=== PATIENT | female | born 1955 | race Caucasian/White ===

== ENCOUNTER 2019-09-22 15:39 | Inpatient (IN) | payer MEDICARE ==
[~2019-09-22 15:39] MED LIST: Heparin 1,000 UNITS/ML VIAL ONE
[2019-09-22] MEDS ORDERED: Acetaminophen 325 MG TAB PO PRN (18:02)
[2019-09-22] MEDS ORDERED: Senokot S 8.6-50 MG TAB PO PRN (18:02)
[2019-09-22] MEDS ORDERED: Dextrose 50% Abboject 50 ML SYRINGE SLOW IVP PRN (19:17)
[2019-09-22] MEDS ORDERED: Dextrose 5% in Water 1,000 ML IV PRN (19:17)
[2019-09-22] MEDS ORDERED: HumaLOG 300 UNITS/3 ML VIAL SC PRN (19:17)
[2019-09-22] MEDS: Gabapentin 300 MG CAP PO SCH (19:53)
[2019-09-22] MEDS ORDERED: Cefepime 2 GM in Sodium Chloride 0.9% 100 ML IVPB SCH (21:00)
[2019-09-22] MEDS: MEROPENEM 1 GM/50 ML 1 GM in Premix Bag 1 BAG IVPB SCH (21:24)
[2019-09-22 21:59] VITALS: BMI 35.7
--- NOTE | 2019-09-23 02:18 | HP ---
CHIEF COMPLAINT: Left foot pain. HISTORY OF PRESENT ILLNESS: The patient is a 64-year-old female with a known history of diabetes who comes into the hospital with complaints of left foot pain x2 days. The patient states that about 2 years ago she had an injury to her left foot, and since then, she had an ulcer about a year ago which was treated without any antibiotics. The patient stated that on Monday she noticed some swelling of the left plantar aspect of her foot. The patient stated that she did go to a local ER for having symptoms of generalized weakness, nausea, vomiting and a fever. At this time, she did not think it was her left foot that could be causing her symptoms. She was told by the ER personnel that she probably had a virus and to continue to monitor. The patient states that she started feeling more weak and started having more pain to her left foot, so she came into the hospital for further evaluation. PAST MEDICAL HISTORY: She has a history of diabetes type 2. She has a history of hypothyroidism and hypertension. SURGICAL HISTORY: She has had a cholecystectomy. She has had tonsillectomy. She has had a tubal ligation. SOCIAL HISTORY: She denies any alcohol use, drug use or smoking history. She is a full code. Lives with her family. REVIEW OF SYSTEMS: All negative except for the ones mentioned above in the HPI. PHYSICAL EXAMINATION: VITAL SIGNS: Temperature of 99.6, 95% on room air, 182/89, 103 and respirations of 20. GENERAL: She is awake, alert and oriented x3. Does not appear in distress. CV: S1, S2 present. No murmurs, rubs or gallops. LUNGS: Clear to auscultation. No rhonchi or wheezes noted. ABDOMEN: Soft and nontender. Bowel sounds are present x2. EXTREMITIES: Pedal pulses are present x2. Her left foot has a significant deformity, appears to be Charcot like. She does have significant erythema and swelling of plantar aspect of her foot. I do see a small injury, however, it looks that it has been healed over. She does have some callus also that is noted to the plantar aspect of her foot. Pedal pulses are present to bilateral lower extremities. NEUROVASCULAR: No focal deficits noted. SKIN: No cuts, lesions or bruises noted. LYMPH NODES: Left inguinal lymph node was palpable. ALLERGIES: SHE IS ALLERGIC TO PENICILLIN, SHE STATES THAT IT IS SINCE SHE WAS A CHILD. MEDICATIONS: She is on: 1. Levothyroxine 125 mcg daily. 2. Lisinopril 20 mg daily. 3. Glipizide 5 mg daily. 4. Gabapentin 600 mg twice a day. 5. Metformin 500 mg twice a day. FAMILY HISTORY: No history of heart disease or stroke. LABORATORY RESULTS: WBC of 12.7, hemoglobin of 11.8, hematocrit of 36.7, platelets of 232, neutrophils are 10.9. Her CK is 126. BMP; sodium of 135, potassium of 3.5, chloride of 96, BUN of 13, creatinine of 1.34. Her bilirubin total is 0.5, glucose of 164. Her AST and ALT are normal. Troponin was normal. BNP was 44. Lactic acid was 1.1. Urine did not show any acute abnormalities. CRP was 16.67. She did have the left foot x-ray which indicated cellulitis, bone destruction, dislocation, subluxation, and cloudy amorphous soft tissue calcification throughout the metatarsal joint. This is suspicious of septic arthritis and osteomyelitis of the midfoot and Charcot neuropathic joint. ASSESSMENT AND PLAN: The patient is a very pleasant 64-year-old female who presents to the hospital with complaints of left foot pain. 1. Left foot cellulitis, possibly osteomyelitis noted on the x-ray. We will get Orthopedics and also Infectious Disease. We will start her on broad-spectrum antibiotics with meropenem and vancomycin. We will keep her n.p.o. after midnight. May also consider getting an MRI. Await recommendations from ID and Orthopedics. 2. Diabetes. We will check her Accu-Cheks before meals and at bedtime. We will hold her metformin and glipizide for now and give her sliding scale, and if required, even subcu. 3. Hypothyroidism. We will continue her Synthroid. 4. Diabetic neuropathy. We will continue her Neurontin. 5. DVT prophylaxis. We will put the patient on subcu Lovenox. Job ID: [id number]
[2019-09-23 05:21] LABS: #Eosinphils 0.1 thou/uL (0.0-0.7); #Monocytes 0.6 thou/uL (0.11-0.59); #Neutrophils 6.3 thou/uL (1.40-6.50); %Basophils 0.4 % (0.0-1.0); %Eosinophils 1.8 % (0.0-10.0); %Monocytes 7.3 % (0.0-10.0); %Neutrophils 78.5 % (42.0-75.0); Hemoglobin 10.7 g/dL (12.0-16.0); Mean Corpuscular Hemoglobin 27.1 pg (27.0-31.0); Mean Corpuscular Volume 87.4 fL (78.0-98.0); Platelet Count 223 thou/uL (130-400); Red Blood Cell (RBC) Count 3.94 mill/uL (4.20-5.40)
[2019-09-23] MEDS: MEROPENEM 1 GM/50 ML 1 GM in Premix Bag 1 BAG IVPB SCH ×3 (05:32→16:38)
[2019-09-23 05:46] LABS: Anion Gap 14 mmol/L (10-20); BUN (Urea Nitrogen) 14 mg/dL (9.8-20.1); Calc. Creatinine Clearance 62 mL/min (70-130); Calcium 7.6 mg/dL (7.8-10.44); Carbon Dioxide 24 mmol/L (23-31); Chloride 103 mmol/L (98-107); Estimated GFR-MDRD 41; Glucose 122 mg/dL (80-115); Potassium 3.5 mmol/L (3.5-5.1); Sodium 137 mmol/L (136-145)
[2019-09-23] MEDS: Gabapentin 300 MG CAP PO SCH ×2 (08:48→22:22)
[2019-09-23] MEDS: Enoxaparin Sodium 40 MG/0.4 ML SYRINGE SC SCH (08:50)
[2019-09-23] MEDS ORDERED: Magnevist 469MG/ML 20 ML VIAL ONE (10:07)
[2019-09-23] MEDS ORDERED: traMADol HCl 50 MG TAB PO PRN (12:21)
[2019-09-23] MEDS ORDERED: Ibuprofen 600 MG TAB PO PRN (12:21)
--- NOTE | 2019-09-23 12:58 | CON ---
DATE OF CONSULTATION: HISTORY OF PRESENT ILLNESS: Erica Aiken is a 64-year-old female, who is from the [facility], but lives with family in [place]. She is a non-insulin dependent diabetic, morbidly obese, 35 BMI. She is admitted to the Hospitalist Service for chronic left foot problems. She has been treated by her local doctor and Podiatry and Wound Care in the [facility]. She presents on this occasion with a chronic left foot problem. She has a small opening probably less than 1 cm in the proximal plantar arch that when probed, the probe extends 5 cm distal foot with undermining. There is severe swelling in the soft tissues. There is swelling of the left lower extremity. Plain x-rays of the left foot are obtained and reveal extensive soft-tissue and bony destruction. There is dislocation laterally and medially of the first and fifth metatarsals and the second, third, and fourth metatarsal talar joints are obscured by chronic inflammation and infection. I suspect she has severe osteomyelitis and Charcot's joint. The patient states she ambulates unassisted. She is on vancomycin and meropenem. Her BUN is slightly elevated, but creatinine is normal. Hemoglobin A1c has not been obtained. ALLERGIES: PENICILLINS, TETANUS, AND DIPHTHERIA TOXOIDS. SOCIAL HISTORY: Tobacco, none. Alcohol, none. MEDICATIONS: At home; 1. Levothyroxine. 2. Gabapentin. 3. Glipizide. 4. Lisinopril. 5. Metformin. PAST SURGICAL HISTORY: Total thyroidectomy, tubal ligation, and cholecystectomy. PAST MEDICAL HISTORY: Diabetes mellitus, hypothyroidism surgical, and obesity, 35 BMI. REVIEW OF SYSTEMS: Ten-point noncontributory. FAMILY HISTORY: Noncontributory. PHYSICAL EXAMINATION: VITAL SIGNS: Height 5 foot 3 inches, 202 pounds, and 35 BMI. 98.3 degrees, 82, and 154/84. LUNGS: Clear to auscultation. CARDIAC: Regular rate and rhythm without murmur or gallop. ABDOMEN: Soft, obese, and nontender. EXTREMITIES: Palpable femoral, popliteal, dorsalis pedis, and posterior tibial pulses. Left foot reveals chronic edema up into the ankle. The plantar foot is markedly indurated and swollen and tense. There is a small opening less than 1 cm in the proximal plantar foot. I can place a Q-tip and it extends 5 cm distally with purulent material. Cultures were submitted today as they had not been submitted today. ASSESSMENT AND PLAN: 1. Severe diabetic infection, left foot with chronic osteomyelitis and dislocation involvement of the talus and ankle bones. We would recommend [id number] amputation. Any attempt at local wound care would just procrastinate inevitable and delay treatment. I have explained this to the patient. I have ordered an MRI scan mostly for the patient's benefit to demonstrate bony destruction and look for more proximal disease, even though I do not think that will affect her treatment. She would like to have that done. She requests a second opinion. I have discussed with Dr. Nitin Hastings, and he is agreeable to see her today for a second opinion. He will review her x-rays and see her. I would recommend a left below-knee amputation next day or two. She would benefit from physical therapy and rehab postoperatively to minimize chance of falling, head injuries, hip fractures, BKA wound dehiscence, and more proximal amputation or an AKA amputation. This would need to be provided in the [facility]. I will ask our sample case porter to start work on that process. Should the patient decide more local treatment, I do not think this is appropriate. We will await MRI and Dr. Nitin Hastings's second opinion. 2. Diabetes mellitus. 3. Obesity. 4. Hypothyroidism, surgical. Job ID: [id number]
[2019-09-23] MEDS: Vancomycin 1.5 GRAM/300 ML BAG 1.5 GM in Premix Bag 1 BAG IVPB SCH (14:11)
--- NOTE | 2019-09-23 15:20 | CON ---
DATE OF CONSULTATION: 09/23/2019 REASON FOR CONSULTATION: Left foot Charcot's with question regarding the possibility of superimposed infection. HISTORY OF PRESENT ILLNESS: A 64-year-old has a longstanding history of type 2 diabetes, obesity, and neuropathy with progressive Charcot's for the past 2 years in the left foot. She came to the hospital from her house in [place] because her blood sugar was erratic, although the note from the ER physician states that she recalled fevers. She told me that she did not actually have any fever until she was admitted to the hospital. Did not have any headaches. No sore throat, odynophagia, or dysphagia. No vomiting. No abdominal pain or chest pain. No genitourinary symptoms. No other joint symptoms outside the area of involvement. MEDICAL HISTORY: 1. Type 2 diabetes. 2. Neuropathy of lower extremities with chronic Charcot arthropathy for the past 2 years at least. 3. Hypothyroidism. 4. She has had cholecystectomy. 5. Tonsillectomy. 6. Tubal ligation. SOCIAL HISTORY: Never smoker. Lives in [place] with family. ALLERGIES: PENICILLIN AND TERRAMYCIN Meds: Lovenox, Neurontin, Motrin, Meropenem, AND Vancomycin. FAMILY HISTORY: Includes type 2 diabetes. PHYSICAL EXAMINATION: VITAL SIGNS: Normal. She has been afebrile here in the hospital. In the emergency room, the vital signs showed a temperature max 99.6 and then she had a pulse 103 to 99, and BP 119/85. SKIN: The left foot with a slit-like opening at the bottom of the plantar midfoot region where the Charcot bulge is located. No actual erythema noted. There is a little bit of drainage on the ABD pad. Dr. Stephen had probed the area and seems like there was some tunneling, it is unclear if the bone was exposed. No lymphadenopathy noted. HEENT: Ocular movements conjugate. Oral cavity with no remarkable findings. NECK: Supple. No jugular venous distention. LUNGS: Clear breath sounds. HEART: S1 and S2. Regular rate. No S3 or S4. ABDOMEN: Soft, not distended or tender. No ascites. No bladder distention. EXTREMITIES: Knees and ankles are seen to be okay. Popliteal pulses were 2+, dorsalis pedis 1+. Cap refill normal. NEUROLOGIC: Nonfocal including cognitive function. LABORATORY DATA: White cell count 8.0, hemoglobin 10.7, platelets 223, and 78% neutrophils. Sodium 137, creatinine 1.31, glucose 122, and calcium 7.6. Urinalysis with 0 to 3 wbc's. IMAGING STUDIES: A foot x-ray with evidence of subluxation of 5th metatarsal relative to the relative to tarsal bones, cloudy new bone and soft tissues, either exuberant callus or aggressive periostitis. ASSESSMENT: 1. Type 2 diabetes. 2. Charcot arthropathy for the past 2 years, concern with superimposed infection. DISCUSSION: Patients with Charcot arthropathy are notoriously difficult sometimes to rule out superimposed infectious process. Both clinical as well as imaging studies may make difficult to evaluate for infection/osteomyelitis. In Dr. Stephen's note, he placed a Q-tip in extended 5 cm distally with purulent material. He does not state if the bone was noticeable at the bottom of this tract, so the patient has been scheduled an MRI and will follow up that and go from there. It looks like she is not willing to have an amputation and the alternate approach would be more limited I and D if there is evidence of infection. Nuclear medicine study with a Ceretec could help decide at that point as well. Vascular supply seems to be adequate. Job ID: [id number] MTDD
--- NOTE | 2019-09-23 15:47 | PDOC.HOSPP ---
- Subjective Encounter Date: 09/23/19 Encounter Time: 10:30 Subjective: pt up in bed no complains - Objective Vital Signs & Weight: Vital Signs (12 hours) Temp Pulse Resp BP Pulse Ox 09/23/19 11:00 98.3 F 82 18 154/84 H 93 L 09/23/19 08:00 93 L 09/23/19 07:23 98.2 F 83 20 138/82 93 L 09/23/19 04:18 98.2 F 85 17 131/60 94 L Weight Admit Weight 202 lb Weight 202 lb I&O: 09/22/19 09/23/19 09/24/19 06:59 06:59 06:59 Intake Total 650 Balance 650 Result Diagrams: 09/23/19 05:00 09/23/19 05:00 Additional Labs: Accuchecks 09/23/19 09/22/19 09/22/19 11:45 21:28 16:38 POC Glucose 125 H 132 H 166 H Hospitalist ROS - Review of Systems Cardiovascular: denies: chest pain, palpitations, orthopnea, paroxysmal noc. dyspnea, edema, light headedness, other Gastrointestinal: denies: nausea, vomiting, abdominal pain, diarrhea, constipation, melena, hematochezia, other Genitourinary: denies: dysuria, frequency, incontinence, hematuria, retention, other - Medication Medications: Active Medications Generic Name Dose Route Start Last Admin Trade Name Freq PRN Reason Stop Dose Admin Enoxaparin Sodium 40 mg 09/23/19 09:00 09/23/19 08:50 Lovenox SC Not Given 0900 KRISTYN Gabapentin 600 mg 09/22/19 21:00 09/23/19 08:48 Neurontin PO 600 mg BID KRISTYN Administration Vancomycin HCl 1.5 gm/ Device 300 mls @ 200 mls/hr 09/23/19 12:00 09/23/19 14 :11 IVPB 300 mls Q24HR KRISTYN Administration Sodium Chloride 10 ml 09/23/19 09:00 09/23/19 09:32 Flush - Normal Saline IVF Not Given Q12HR KRISTYN - Exam Neck: negative: supple, symmetric, no JVD, no thyromegaly, no lymphadenopathy, no carotid bruit, JVD Heart: negative: RRR, no murmur, no gallops, no rubs, normal peripheral pulses, irregular, diminshed peripheral pulses, murmur present, II/IV, III/IV Respiratory: negative: CTAB, no wheezes, no rales, no ronchi, normal chest expansion, no tachypnea, normal percussion, rales, rhonchi, tachypneic, wheezes Hosp A/P (1) Cellulitis Code(s): L03.90 - CELLULITIS, UNSPECIFIED Status: Acute (2) Diabetes Code(s): E11.9 - TYPE 2 DIABETES MELLITUS WITHOUT COMPLICATIONS Status: Acute (3) HTN (hypertension) Code(s): I10 - ESSENTIAL (PRIMARY) HYPERTENSION Status: Acute - Plan spoke with ID will get mri of left foot. will continue abx for now. pt wants a second opinion since she did not like the option of amputation given surgeon.
--- NOTE | 2019-09-23 16:16 | MRI ---
MRI LEFT FOOT WITH AND WITHOUT CONTRAST: History: Osteomyelitis Comparison: 09-22-2019 radiograph. FINDINGS: There is a soft tissue defect of the plantar aspect of the midfoot with abscess formation and sinus t ract. The abscess extends along the plantar fascia distally to the forefoot with small little collect ions throughout the superficial subcutaneous fat with a few perforations to the atrophied flexor digi torum brevis musculature. A small tract of this abscess does extend into the midfoot where there is e xtensive osseous destruction, disorganization and debris. There is homolateral Lisfranc injury with l ateral subluxation of second tarsal metatarsal joints without subluxation of the first tarsal metatar cassidy joint. Loss of normal marrow signal of the 2nd and 3rd toe metatarsals as well as the 3rd and 4th metatarsal base. Large erosions of the medial intermediate cuneiforms with loss of marrow signal. Th ere is also loss of marrow signal within the navicular. There is also loss of marrow signal of the cu boid. There is abnormal enhancing collection along the tarsal tunnel concerning for abscess measuring 16 mm in size. IMPRESSION: Large wound with abscess formation throughout the midfoot soft tissues which does have deep penetrati on through the plantar fascia, atrophied flexor digitorum brevis muscles, extending into the midfoot. This is suggestive of midfoot osteomyelitis, superimposed upon chronic long-standing Charcot arthrop athy. There is abnormal infectious fluid extending as proximal as the tarsal tunnel with distal infec tion extending as far as the 2nd, 3rd, and 4th metatarsal distal diaphyses. POS: HOME
[2019-09-24] MEDS: MEROPENEM 1 GM/50 ML 1 GM in Premix Bag 1 BAG IVPB SCH ×3 (00:16→18:45)
--- NOTE | 2019-09-24 01:44 | CON ---
DATE OF CONSULTATION: 09/23/2019 CHIEF COMPLAINT: Foot pain. HISTORY OF PRESENT ILLNESS: Ms. Aiken is a 64-year-old female, who is admitted to the hospital for foot ulceration. The patient has a long history of deformity of her foot. She has had Charcot changes on the foot over the last 1 to 2 years. She reports having a chronically swollen foot. She has minimal sensation in the foot with dense neuropathy. She is a diabetic. Diabetes runs in her family. Her brother recently had a below-knee amputation as complications of diabetes. I was consulted today to evaluate an ulceration of the foot. This developed one week ago. She has had drainage. She has had erythema and increased swelling. She normally wears regular walking shoes. She has not had a special orthotic made. PAST MEDICAL HISTORY: 1. Type 2 diabetes. 2. Neuropathy. 3. Hypothyroidism. SURGICAL HISTORY: Previous cholecystectomy, tonsillectomy, and tubal ligation. SOCIAL HISTORY: The patient denies tobacco use. She denies alcohol or drug use. She lives in [place], [place]. ALLERGIES: TO PENICILLIN AND TERRAMYCIN. ALSO, TETANUS AND DIPHTHERIA TOXOID. REVIEW OF SYSTEMS: The patient denies active positives on 10-point review of systems. IMAGES: X-rays of the left foot are reviewed as well as MRI dated from today. This is also of the left foot. Images show destructive changes of the midfoot with loss of the arch. There is evidence of Charcot arthropathy and chronic changes as well as a superimposed picture of infection. There is what appears to be an abscess in the mid foot on the plantar aspect which may communicate into the mid foot bony structures. There is also sinus consistent with her ulceration and drainage. PHYSICAL EXAMINATION: VITAL SIGNS: Patient's temperature is 98.0, pulse is 97, respiratory rate of 17, oxygen saturation 93%, and blood pressure is 155/89. GENERAL: She is sitting upright, in no apparent distress. Breathing comfortably. ABDOMEN: Soft, nontender, and nondistended. CARDIOVASCULAR: Pulses peripherally are difficult to palpate. MUSCULOSKELETAL: The patient's left lower extremity has an enlarged appearance. There is faint erythema around the mid foot and plantar aspect. She has loss of arch. She has poor sensation below the mid calf level and distally. The foot is warm and well perfused. She is able to flex and extend the ankle and toes. Next, the patient has a small, 1 cm ulceration over the plantar mid foot. There is purulent material which can be expressed from this. IMPRESSION: History of Charcot arthropathy of the mid foot in a 64-year-old diabetic female with neuropathy. The patient now has an ulceration and a midfoot abscess. PLAN: At this point, I had a long discussion with the patient. She has two options. One would be an aggressive approach with below-knee amputation. This would allow her to be fitted with a prosthesis and prevent further complications of her Charcot arthropathy and cleared her infection. Alternatively, she could have a more minimal approach including irrigation and debridement of the mid foot and ulcer with long-term wound care and antibiotic therapy. She would also likely need a custom fitted orthotic or walking boot to prevent further ulceration. She would not be a candidate for reconstructive foot surgery in the future if she is cleared her infection. She wants to avoid below-knee amputation for now. She wants a more minimal approach with I and D etc. She will be n.p.o. at midnight. Dr. Stephen has been consulted on this patient as well and will continue her care. I am available if needed. I would anticipate that she is going to surgery tomorrow with Dr. Stephen. Job ID: [id number]
[2019-09-24] MEDS: Enoxaparin Sodium 40 MG/0.4 ML SYRINGE SC SCH (08:10)
[2019-09-24] MEDS: Gabapentin 300 MG CAP PO SCH ×2 (08:11→20:18)
[2019-09-24] MEDS ORDERED: LEVOTHYROXINE SODIUM 125 MCG PO SCH (09:00)
[2019-09-24] MEDS ORDERED: PROPOFOL 200 MG/20 ML VIAL ONE (11:26)
[2019-09-24] MEDS ORDERED: Lidocaine 1% PF 5 ML VIAL ONE (11:26)
[2019-09-24] MEDS ORDERED: Labetalol HCl 100 MG/20 ML VIAL ONE (11:26)
[2019-09-24 11:50] LABS: Vancomycin, Trough 13.3 ug/mL
[2019-09-24] MEDS: Vancomycin 1.5 GRAM/300 ML BAG 1.5 GM in Premix Bag 1 BAG IVPB SCH (11:55)
--- NOTE | 2019-09-24 11:56 | PDOC.HOSPP ---
- Subjective Encounter Date: 09/24/19 Encounter Time: 11:00 Subjective: pt up in bed no complains - Objective Vital Signs & Weight: Vital Signs (12 hours) Temp Pulse Resp BP Pulse Ox 09/24/19 07:59 98.0 F 81 18 160/83 H 95 09/24/19 04:13 98.1 F 78 17 153/82 H 92 L Weight Admit Weight 202 lb Weight 202 lb I&O: 09/23/19 09/24/19 09/25/19 06:59 06:59 06:59 Intake Total 650 Balance 650 Result Diagrams: 09/23/19 05:00 09/23/19 05:00 Additional Labs: Accuchecks 09/24/19 09/23/19 09/23/19 04:17 19:17 16:18 POC Glucose 130 H 160 H 143 H 09/23/19 11:45 POC Glucose 125 H Hospitalist ROS - Review of Systems Respiratory: denies: cough, dry, shortness of breath, hemoptysis, SOB with excertion, pleuritic pain, sputum, wheezing, other Cardiovascular: denies: chest pain, palpitations, orthopnea, paroxysmal noc. dyspnea, edema, light headedness, other Gastrointestinal: denies: nausea, vomiting, abdominal pain, diarrhea, constipation, melena, hematochezia, other - Medication Medications: Active Medications Generic Name Dose Route Start Last Admin Trade Name Freq PRN Reason Stop Dose Admin Enoxaparin Sodium 40 mg 09/23/19 09:00 09/24/19 08:10 Lovenox SC Not Given 0900 KRISTYN Gabapentin 600 mg 09/22/19 21:00 09/24/19 08:11 Neurontin PO 600 mg BID KRISTYN Administration Vancomycin HCl 1.5 gm/ Device 300 mls @ 200 mls/hr 09/23/19 12:00 09/23/19 14 :11 IVPB 300 mls Q24HR KRISTYN Administration Meropenem 1 gm/ Device 50 mls @ 100 mls/hr 09/23/19 16:00 09/24/19 08:11 IVPB 50 mls Q8H KRISTYN Administration Sodium Chloride 10 ml 09/23/19 09:00 09/24/19 08:12 Flush - Normal Saline IVF Not Given Q12HR KRISTYN Tramadol HCl 50 mg 09/23/19 12:09/23/19 22:32 Ultram PO 50 mg Q4H PRN Administration Moderate Pain (4-6) - Exam Neck: negative: supple, symmetric, no JVD, no thyromegaly, no lymphadenopathy, no carotid bruit, JVD Heart: negative: RRR, no murmur, no gallops, no rubs, normal peripheral pulses, irregular, diminshed peripheral pulses, murmur present, II/IV, III/IV Respiratory: negative: CTAB, no wheezes, no rales, no ronchi, normal chest expansion, no tachypnea, normal percussion, rales, rhonchi, tachypneic, wheezes Gastrointestinal: negative: soft, non-tender, non-distended, normal bowel sounds , no palpable masses, no hepatomegaly, no splenomegaly, no bruit, no guarding, no rigidity, tender to palpation, distended, diminished bowl sounds, voluntary guarding Extremities - other findings: left foot wrapped Hosp A/P (1) Cellulitis Code(s): L03.90 - CELLULITIS, UNSPECIFIED Status: Acute (2) Diabetes Code(s): E11.9 - TYPE 2 DIABETES MELLITUS WITHOUT COMPLICATIONS Status: Acute (3) HTN (hypertension) Code(s): I10 - ESSENTIAL (PRIMARY) HYPERTENSION Status: Acute (4) Osteomyelitis Code(s): M86.9 - OSTEOMYELITIS, UNSPECIFIED Status: Acute (5) Charcot's joint of foot Code(s): M14.679 - CHARCOT'S JOINT, UNSPECIFIED ANKLE AND FOOT Status: Acute - Plan spoke with ID will get mri of left foot. will continue abx for now. pt wants a second opinion since she did not like the option of amputation given surgeon. 09/23 pt to get i&d of her left foot. cx indicate staph will continue abx for now. she was given two options and she does not want to undergo amputation. will continue sliding scale insulin.
--- NOTE | 2019-09-24 13:36 | PRG ---
DATE OF SERVICE: 09/24/2019 SUBJECTIVE: Ms. Aiken was seen by Dr. Hastings. The MRI showed infection, abscess, and so she is going for debridement today of the area. Otherwise, she is feeling okay. No respiratory symptoms or abdominal pain. No genitourinary symptoms. OBJECTIVE: VITAL SIGNS: She is afebrile. BP 160/83, pulse 81, respirations 18, and O2 saturation 92 to 95. LUNGS: Clear. HEART: S1 and S2, regular rate. ABDOMEN: Soft. EXTREMITIES: The left foot with the same appearance. LABORATORY DATA: The labs have not been repeated. The culture revealed Staphylococcus species. ASSESSMENT: Charcot with abscess, left plantar area, likely some element of osteo too, going for debridement. Cultures pending. Further cultures to be submitted with the samples obtained during the procedure, and then probably will need a wound VAC and specialized wound care plus protracted antimicrobial therapy. Job ID: [id number]
[2019-09-24] MEDS ORDERED: Bupivacaine 0.25% HCL 30 ML VIAL ONE (17:06)
[2019-09-24] MEDS ORDERED: Lidocaine 1% w/Epinephrine 1:100K 20 ML VIAL ONE (17:06)
[2019-09-24] MEDS ORDERED: Ketamine 50 MG/ML (10ML VIAL) ONE (17:20)
[2019-09-24] MEDS ORDERED: PROPOFOL 40 ML ONE (17:21)
[2019-09-24] MEDS ORDERED: Ondansetron HCl/PF 4 MG/2 ML Vial IVP PRN (18:16)
[2019-09-24] MEDS ORDERED: Promethazine HCl 25 MG/ML VIAL SLOW IVP PRN (18:16)
[2019-09-24] MEDS ORDERED: Promethazine HCl 25 MG/ML VIAL IM PRN (18:16)
[2019-09-24] MEDS ORDERED: hydrALAZINE 20 MG/ML VIAL ONE (18:20)
[2019-09-24] MEDS: Acetaminophen 500 MG TAB PO PRN (21:07)
[2019-09-25] MEDS: MEROPENEM 1 GM/50 ML 1 GM in Premix Bag 1 BAG IVPB SCH ×3 (00:58→16:27)
[2019-09-25] MEDS: Levothyroxine Sodium 125 MCG TAB PO SCH (06:00)
[2019-09-25] MEDS: Gabapentin 300 MG CAP PO SCH ×2 (08:02→20:32)
[2019-09-25] MEDS: Enoxaparin Sodium 40 MG/0.4 ML SYRINGE SC SCH ×2 (08:03→16:04)
[2019-09-25] MEDS: Lisinopril 10 MG TAB PO SCH (08:03)
--- NOTE | 2019-09-25 09:54 | OP ---
DATE OF PROCEDURE: 09/24/2019 PREOPERATIVE DIAGNOSES: Left Charcot foot with chronic changes, plantar arch with large undermining wound with osteomyelitis and metatarsal dislocations, 5th and 1st with plantar opening, culture Staphylococcus aureus for incision and drainage. Note, the patient refused below-knee amputation. POSTOPERATIVE DIAGNOSES: Left Charcot's foot with chronic changes, plantar arch with large undermining wound with osteomyelitis and metatarsal dislocations, 5th and 1st with plantar opening, culture Staphylococcus aureus for incision and drainage. Note, the patient refused below-knee amputation. PROCEDURE PERFORMED: Incision and drainage of plantar left foot wound. FINDINGS: The patient had a proximal arch small open wound that tracked towards the distal foot deep to the plantar fascia extending 4 to 5 cm. This probably erodes right over the metatarsals and tendons. This is deep. Grossly, the wound looked like deep purulent material, but on entering the wound in the operating room, this was a deep cavity that was pulse irrigated. Wound Care placed a wound VAC. Initial plan was to make an incision off the plantar aspect of foot, but this was not possible due to the location of the process. DESCRIPTION OF PROCEDURE: The patient was taken to the operative room, where under intravenous sedation, the left foot and ankle prepared with Betadine and draped in routine fashion. I inspected the wound, expecting efforts to make an incision on the lateral plantar or medial plantar, but the prominent area of induration and the underlying cavity was in the mid foot, and I would have to go through too much normal tissue to do this, thus as the wound was already opened and thinned out, I made an opening, enlarged it slightly enlarging from 1 cm to approximately 2.5 cm wound, explored this with instruments and performed pulsed irrigation. There were no more cultures to be performed. Wound care team then arrived to place the wound VAC. Overall, prognosis is poor for limb salvage. The patient, however, refused amputation and will make efforts with prolonged antibiotics and wound care. Job ID: [id number]
[2019-09-25 10:15] LABS: #Eosinphils 0.4 thou/uL (0.0-0.7); #Lymphocytes 1.8 thou/uL (1.20-3.40); #Monocytes 0.6 thou/uL (0.11-0.59); #Neutrophils 4.9 thou/uL (1.40-6.50); %Basophils 0.9 % (0.0-1.0); %Eosinophils 4.7 % (0.0-10.0); %Lymphocytes 23.4 % (21.0-51.0); %Monocytes 7.3 % (0.0-10.0); %Neutrophils 63.7 % (42.0-75.0); Hemoglobin 11.7 g/dL (12.0-16.0); Mean Corpuscular HGB CONC 33.2 g/dL (32.0-36.0); Mean Corpuscular Volume 87.4 fL (78.0-98.0); Mean Platelet Volume 10.7 fL (7.4-10.4); Platelet Count 263 thou/uL (130-400); RBC Distribution Width 12.2 % (11.5-14.5); Red Blood Cell (RBC) Count 4.04 mill/uL (4.20-5.40); White Blood Cell (WBC) Count 7.7 thou/uL (4.8-10.8)
[2019-09-25 10:16] LABS: #Basophils 0.1 thou/uL (0.0-0.2)
[2019-09-25 10:33] LABS: Anion Gap 14 mmol/L (10-20); BUN (Urea Nitrogen) 18 mg/dL (9.8-20.1); Calc. Creatinine Clearance 68 mL/min (70-130); Calcium 7.7 mg/dL (7.8-10.44); Carbon Dioxide 23 mmol/L (23-31); Chloride 104 mmol/L (98-107); Estimated GFR-MDRD 45; Glucose 196 mg/dL (80-115); Magnesium 1.7 mg/dL (1.6-2.6); Potassium 3.8 mmol/L (3.5-5.1); Sodium 137 mmol/L (136-145)
[2019-09-25 11:01] LABS: Hemoglobin A1c 7.7 % (4.0-6.0)
--- NOTE | 2019-09-25 11:58 | PQF ---
DATE: 09-25-19 ATTN: DR. JANY SEPULVEDA Please exercise your independent, professional judgment in responding to the clarification form. Clinical indicators are provided on the bottom of this form for your review Please check appropriate box(s): [ ] Acute Renal Failure [ ] Insignificant Lab Values [ x] Other diagnosis ____ckd__stage 3 [ ] Unable to determine In addition, please specify: Present on Admission (POA): [ x ] Yes [ ] No [ ] Unable to determine National Kidney Foundation Guidelines for CKD Staging Stage I Kidney damage with normal or increased GFR GFR > 90 Stage II Kidney damage with mildly decreased GFR GFR 60-89 Stage III Kidney damage with moderately decreased GFR GFR 30-59 Stage IV Kidney damage with severely decreased GFR GFR 16-29 Stage V Kidney failure GFR<15 ESRD End Stage Renal Disease On dialysis Acute Renal Failure/Acute Kidney Failure defined as: Increases in SCr by (>) 0.3 mg/dl within 48 hours OR- Increases in SCr by (>) 1.5 times baseline, known or presumed to have occurred within the prior 7 days OR- Urine volume < 0.5 ml/kg/hour for 6 hours (KDIGO supplement 2012 for RIFLE/RADHA criteria) For continuity of documentation, please document condition throughout progress notes and discharge summary. Thank You. CLINICAL INDICATORS - SIGNS / SYMPTOMS / LABS / RESULTS AND LOCATION IN MR: GFR: 09-23-19: 41 09-25-19: 45 CREATININE: 09-23-19: 1.31 09-25-19: 1.20 BUN: 09-23-19: 14 09-25-19: 18 RISK FACTORS / RESULTS AND LOCATION IN MR: H&P 09-20-19: HX HTN, DM2, DIABETIC NEUROPATHY, MEDS ON: LISINOPRIL, GLIPIZIDE , GABAPENTIN, METFORMIN TREATMENTS / RESULTS AND LOCATION IN MR: MONITORING LABS 09-22, 09-24 (This form is maintained as a part of the permanent medical record) 2014 [employer]. All Rights Reserved [email or web address] [email or web address] [facility]
[2019-09-25] MEDS: Vancomycin HCl 1.75 GM in Sodium Chloride 0.9% 500 ML IVPB SCH (12:29)
--- NOTE | 2019-09-25 12:59 | PRG ---
DATE OF SERVICE: 09/25/2019 Ms. Aiken is doing well postoperatively. Her left foot is severely affected by her diabetes. She has severe Charcot joint. Her fifth and first metatarsals are dislocated medially and laterally respectfully. Yesterday, she underwent incision and drainage and the small plantar proximal arch wound was opened slightly just enough to allow irrigation. There was no purulent material appreciated. The wound did extend about a 5 cm diameter area on the plantar foot down towards the bones and tendons. I minimized the wound and thus could not directly evaluate things, but the destructive infectious process is very deep. Cultures reveal Staphylococcus aureus. Dr. Mulligan is seeing her. A wound VAC was placed to help this heal. Overall, long-term prognosis is poor. Blood supply is optimal. She has palpable pedal pulses. At this point, she is stable for discharge on antibiotic regimen IV or oral per Dr. Mulligan. I will be seeing her as an outpatient in my office if she so desires, although she lives near [place] and may seek followup elsewhere. We will ask her to see me in the office in 2 to 3 weeks and we will see how the wound is healing. media production support manager will arrange outpatient wound care. Wound VAC can be used, but it probably will not be able to be used as long as this opening is small and it is likely closed off quickly. Hopefully with the intravenous and oral antibiotics per Dr. Mulligan and wound care, she will have some time to keep her leg. Job ID: [id number]
--- NOTE | 2019-09-25 13:27 | PQF ---
DATE: 09-25-19 ATTN: DR. JANY SEPULVEDA Please exercise your independent, professional judgment in responding to the clarification form. Clinical indicators are provided on the bottom of this form for your review Please check appropriate box(s) to clarify if the following diagnosis has been ruled in or ruled out: SEPSIS [ ] Ruled in diagnosis [ x] Continue to treat [ ] Resolved [ ] Ruled out diagnosis [ ] Other diagnosis [ ] Unable to determine In addition, please specify: Present on Admission (POA): [ x ] Yes [ ] No [ ] Unable to determine For continuity of documentation, please document condition throughout progress notes and discharge summary. Thank You. CLINICAL INDICATORS - SIGNS / SYMPTOMS / LABS / RESULTS AND LOCATION IN MR: ER DX 09-22-19: OSTEO L FOOT, SEPSIS H&P 09-22-19: L FOOT CELLULITIS, POSSIBLY OSTEOMYELITIS NOTED ON XRAY RISK FACTORS / RESULTS AND LOCATION IN MR: H&P 09-22-19: L FOOT CELLULITIS, POSSIBLY OSTEOMYELITIS NOTED ON XRAY, HX OF DIABETES, HYPOTHYRODISM, DIABETIC NEUROPATHY CONSULT NOTE DR. JIMENEZ 09-23-19: SEVERE DIABETIC INFECTION, LEFT FOOT WITH CHRONIC OSTEOMYELITIS AND DISLOCATION INVOLVEMENT OF THE TALUS AND ANKLE BONES. WE RECOMMEND BKA. TREATMENTS / RESULTS AND LOCATION IN MR: MAR: 09-25-19: VANCOMYCIN IV, MEROPENEM IV (This form is maintained as a part of the permanent medical record) 2014 [employer] [place]. All Rights Reserved [email or web address] [email or web address] Cell [facility]
--- NOTE | 2019-09-25 14:58 | PDOC.HOSPP ---
- Subjective Encounter Date: 09/25/19 Encounter Time: 11:45 Subjective: pt up in bed no complains - Objective Vital Signs & Weight: Vital Signs (12 hours) Temp Pulse Resp BP BP Pulse Ox 09/25/19 08:28 98.1 F 80 18 134/74 93 L 09/25/19 08:03 143/73 H 09/25/19 08:00 93 L 09/25/19 03:40 98 F 78 18 143/73 H 95 Weight Admit Weight 202 lb Weight 202 lb I&O: 09/24/19 09/25/19 09/26/19 06:59 06:59 06:59 Intake Total 650 Balance 650 Result Diagrams: 09/25/19 10:01 09/25/19 10:01 Additional Labs: Accuchecks 09/25/19 09/25/19 09/24/19 11:16 05:49 19:18 POC Glucose 192 H 157 H 114 H Hospitalist ROS - Review of Systems Cardiovascular: denies: chest pain, palpitations, orthopnea, paroxysmal noc. dyspnea, edema, light headedness, other Gastrointestinal: denies: nausea, vomiting, abdominal pain, diarrhea, constipation, melena, hematochezia, other Genitourinary: denies: dysuria, frequency, incontinence, hematuria, retention, other - Medication Medications: Active Medications Generic Name Dose Route Start Last Admin Trade Name Freq PRN Reason Stop Dose Admin Acetaminophen 1,000 mg 09/23/19 12:21 09/24/19 21:07 Tylenol PO 1,000 mg Q6H PRN Administration Moderate to Severe Pain (6-10) Enoxaparin Sodium 40 mg 09/23/19 09:00 09/25/19 08:03 Lovenox SC 40 mg 0900 KRISTYN Administration Gabapentin 600 mg 09/22/19 21:00 09/25/19 08:02 Neurontin PO 600 mg BID KRISTYN Administration Meropenem 1 gm/ Device 50 mls @ 100 mls/hr 09/23/19 16:00 09/25/19 08:02 IVPB 50 mls Q8H KRISTYN Administration Vancomycin HCl 1.75 gm/ Sodium 500 mls @ 250 mls/hr 09/25/19 12:00 09/25/19 12:29 Chloride IVPB 500 mls 1200 KRISTYN Administration Insulin Human Lispro 0 units 09/22/19 19:17 09/25/19 12:29 Humalog SC 2 unit .MODERATE SLIDING SC PRN Administration Moderate Correctional Scale Levothyroxine Sodium 125 mcg 09/25/19 06:00 09/25/19 06:00 Synthroid PO 125 mcg 0600 KRISTYN Administration Lisinopril 10 mg 09/25/19 09:00 09/25/19 08:03 Zestril PO 10 mg DAILY KRISTYN Administration Sodium Chloride 10 ml 09/23/19 09:00 09/25/19 08:03 Flush - Normal Saline IVF 10 ml Q12HR KRISTYN Administration Tramadol HCl 50 mg 09/23/19 12:21 09/23/19 22:32 Ultram PO 50 mg Q4H PRN Administration Moderate Pain (4-6) - Exam Neck: negative: supple, symmetric, no JVD, no thyromegaly, no lymphadenopathy, no carotid bruit, JVD Heart: negative: RRR, no murmur, no gallops, no rubs, normal peripheral pulses, irregular, diminshed peripheral pulses, murmur present, II/IV, III/IV Respiratory: negative: CTAB, no wheezes, no rales, no ronchi, normal chest expansion, no tachypnea, normal percussion, rales, rhonchi, tachypneic, wheezes Gastrointestinal: negative: soft, non-tender, non-distended, normal bowel sounds , no palpable masses, no hepatomegaly, no splenomegaly, no bruit, no guarding, no rigidity, tender to palpation, distended, diminished bowl sounds, voluntary guarding Extremities - other findings: left foot wrapped Hosp A/P (1) Cellulitis Code(s): L03.90 - CELLULITIS, UNSPECIFIED Status: Acute (2) Diabetes Code(s): E11.9 - TYPE 2 DIABETES MELLITUS WITHOUT COMPLICATIONS Status: Acute (3) HTN (hypertension) Code(s): I10 - ESSENTIAL (PRIMARY) HYPERTENSION Status: Acute (4) Osteomyelitis Code(s): M86.9 - OSTEOMYELITIS, UNSPECIFIED Status: Acute (5) Charcot's joint of foot Code(s): M14.679 - CHARCOT'S JOINT, UNSPECIFIED ANKLE AND FOOT Status: Acute (6) CKD (chronic kidney disease) stage 3, GFR 30-59 ml/min Code(s): N18.3 - CHRONIC KIDNEY DISEASE, STAGE 3 (MODERATE) Status: Acute - Plan spoke with ID will get mri of left foot. will continue abx for now. pt wants a second opinion since she did not like the option of amputation given surgeon. 09/23 pt to get i&d of her left foot. cx indicate staph will continue abx for now. she was given two options and she does not want to undergo amputation. will continue sliding scale insulin. 09/24 s/p I&D of plantar left foot wound. will continue current abx. case management manager consulted for wound care. she will also need a picc placed and iv abx.
--- NOTE | 2019-09-25 22:10 | EKG ---
Test Reason : Blood Pressure : / mmHG Vent. Rate : 077 BPM Atrial Rate : 077 BPM P-R Int : 164 ms QRS Dur : 086 ms QT Int : 406 ms P-R-T Axes : 018 020 029 degrees QTc Int : 459 ms Normal sinus rhythm Normal ECG No previous ECGs available Confirmed by Cornelia DIEZ ([id number]) on 09/25/2019 10:10:00 PM Referred By: NELSON Confirmed By:Cornelia DIEZ
[2019-09-25] MEDS: Acetaminophen 500 MG TAB PO PRN (22:20)
--- NOTE | 2019-09-25 22:26 | CON ---
DATE OF CONSULTATION: 09/25/2019 The patient had surgical debridement by Dr. Stephen and this is about the same. No respiratory symptoms or abdominal pain, no diarrhea. No pain due to neuropathy in the operated foot. She has been afebrile, Lungs are clear. S1-S2, regular rate. Abdomen is soft, not distended and she has a negative pressure dressing. LABORATORY DATA: White cell count 7.7, hemoglobin 11.7, platelets 263, creatinine 1.2. Microbiology with Staphylococcus pseudo intermedius, broad susceptibility profile. No further sample submitted for cultures. ASSESSMENT AND DISCUSSION: 1. Charcot with abscess, left plantar area, likely some deep involvement with osteomyelitis. 2. Declined amputation. We will go ahead and switch her to Invanz and vancomycin. Treat for protracted period of time. Job ID: [id number]
[2019-09-26] MEDS: Levothyroxine Sodium 125 MCG TAB PO SCH (05:28)
[2019-09-26] MEDS: MEROPENEM 1 GM/50 ML 1 GM in Premix Bag 1 BAG IVPB SCH ×3 (08:15→17:18)
[2019-09-26] MEDS: Gabapentin 300 MG CAP PO SCH ×2 (08:15→20:32)
[2019-09-26] MEDS: Lisinopril 10 MG TAB PO SCH (08:15)
[2019-09-26] MEDS: Enoxaparin Sodium 40 MG/0.4 ML SYRINGE SC SCH (08:17)
[2019-09-26] MEDS ORDERED: Lisinopril 20 MG TAB PO SCH (10:00)
[2019-09-26] MEDS: Vancomycin HCl 1.75 GM in Sodium Chloride 0.9% 500 ML IVPB SCH (13:46)
--- NOTE | 2019-09-26 15:08 | PDOC.HOSPP ---
- Subjective Encounter Date: 09/26/19 Encounter Time: 10:45 Subjective: pt up in bed no complains - Objective Vital Signs & Weight: Vital Signs (12 hours) Temp Pulse Resp BP BP BP Pulse Ox 09/26/19 10:52 164/83 H 09/26/19 08:15 164/83 H 09/26/19 07:09 98.0 F 93 17 182/81 H 93 L 09/26/19 04:21 97.8 F 72 17 170/89 H 97 Weight Admit Weight 202 lb Weight 202 lb Result Diagrams: 09/25/19 10:01 09/25/19 10:01 Additional Labs: Accuchecks 09/26/19 09/26/19 09/25/19 11:07 04:24 19:41 POC Glucose 175 H 154 H 198 H 09/25/19 17:09 POC Glucose 156 H Hospitalist ROS - Review of Systems Cardiovascular: denies: chest pain, palpitations, orthopnea, paroxysmal noc. dyspnea, edema, light headedness, other Gastrointestinal: denies: nausea, vomiting, abdominal pain, diarrhea, constipation, melena, hematochezia, other Genitourinary: denies: dysuria, frequency, incontinence, hematuria, retention, other - Medication Medications: Active Medications Generic Name Dose Route Start Last Admin Trade Name Freq PRN Reason Stop Dose Admin Acetaminophen 1,000 mg 09/23/19 12:21 09/25/19 22:20 Tylenol PO 1,000 mg Q6H PRN Administration Moderate to Severe Pain (6-10) Enoxaparin Sodium 40 mg 09/23/19 09:00 09/26/19 08:17 Lovenox SC Not Given 0900 [facility] Gabapentin 600 mg 09/22/19 21:00 09/26/19 08:15 Neurontin PO 600 mg BID KRISTYN Administration Meropenem 1 gm/ Device 50 mls @ 100 mls/hr 09/23/19 16:00 09/26/19 08:15 IVPB 50 mls Q8H KRISTYN Administration Vancomycin HCl 1.75 gm/ Sodium 500 mls @ 250 mls/hr 09/25/19 12:00 09/26/19 13:46 Chloride IVPB Not Given 1200 [facility] Insulin Human Lispro 0 units 09/22/19 19:17 09/25/19 12:29 Humalog SC 2 unit .MODERATE SLIDING SC PRN Administration Moderate Correctional Scale Levothyroxine Sodium 125 mcg 09/25/19 06:00 09/26/19 05:28 Synthroid PO 125 mcg 0600 KRISTYN Administration Sodium Chloride 10 ml 09/23/19 09:00 09/26/19 08:16 Flush - Normal Saline IVF 10 ml Q12HR KRISTYN Administration Tramadol HCl 50 mg 09/23/19 12:21 09/23/19 22:32 Ultram PO 50 mg Q4H PRN Administration Moderate Pain (4-6) - Exam Neck: negative: supple, symmetric, no JVD, no thyromegaly, no lymphadenopathy, no carotid bruit, JVD Heart: negative: RRR, no murmur, no gallops, no rubs, normal peripheral pulses, irregular, diminshed peripheral pulses, murmur present, II/IV, III/IV Respiratory: negative: CTAB, no wheezes, no rales, no ronchi, normal chest expansion, no tachypnea, normal percussion, rales, rhonchi, tachypneic, wheezes Gastrointestinal: negative: soft, non-tender, non-distended, normal bowel sounds , no palpable masses, no hepatomegaly, no splenomegaly, no bruit, no guarding, no rigidity, tender to palpation, distended, diminished bowl sounds, voluntary guarding Hosp A/P (1) Cellulitis Code(s): L03.90 - CELLULITIS, UNSPECIFIED Status: Acute (2) Diabetes Code(s): E11.9 - TYPE 2 DIABETES MELLITUS WITHOUT COMPLICATIONS Status: Acute (3) HTN (hypertension) Code(s): I10 - ESSENTIAL (PRIMARY) HYPERTENSION Status: Acute (4) Osteomyelitis Code(s): M86.9 - OSTEOMYELITIS, UNSPECIFIED Status: Acute (5) Charcot's joint of foot Code(s): M14.679 - CHARCOT'S JOINT, UNSPECIFIED ANKLE AND FOOT Status: Acute (6) CKD (chronic kidney disease) stage 3, GFR 30-59 ml/min Code(s): N18.3 - CHRONIC KIDNEY DISEASE, STAGE 3 (MODERATE) Status: Acute - Plan spoke with ID will get mri of left foot. will continue abx for now. pt wants a second opinion since she did not like the option of amputation given surgeon. 09/23 pt to get i&d of her left foot. cx indicate staph will continue abx for now. she was given two options and she does not want to undergo amputation. will continue sliding scale insulin. 09/24 s/p I&D of plantar left foot wound. will continue current abx. bilingual case manager consulted for wound care. she will also need a picc placed and iv abx. 09/25 will titrate pt's bp meds for better control. pt to get picc line. pt's wound vac has been set up. possible home in am.
--- NOTE | 2019-09-26 16:28 | SPC ---
Ultrasound and Fluoroscopic guided left upper extremity PICC placement HISTORY: Foot infection. Patient needs long-term IV antibiotics. FINDINGS: Informed consent obtained prior to the procedure. An appropriate access site was determined with ultrasound guidance. The area was then meticulously pr epped and draped in usual sterile fashion. Skin overlying the left basilic vein anesthetized with 1% buffered lidocaine. Utilizing direct sonogr aphic guidance, vascular access is obtained via the left basilic vein, and an 0.018in guidewire was advanced to the distal SVC. Intravascular length is calculated at 41 cm, and the PICC is cut accordin gly. Needle is removed and replaced with a peel-away sheath. The PICC was advanced over the wire. Wire and peel-away sheath were removed. The tip of the catheter overlies the distal SVC. The catheter was accessed and aspirated/flushed easily. Exposure data: 0.3 minutes of fluoroscopic time 2468 mGy centimeter squared FINDINGS: Technically successful placement of a 41 centimeter single lumen 5 Kinyarwanda left upper extremity PICC l ine. IMPRESSION: Successful ultrasound guided placement of a left upper extremity PICC.
--- NOTE | 2019-09-26 16:30 | PRG ---
DATE OF SERVICE: 09/26/2019 SUBJECTIVE: No changes in symptoms. She had PICC line placed. OBJECTIVE: VITAL SIGNS: Otherwise are stable. Slight elevation in systolic. GENERAL: Awake, alert, and oriented. LUNGS: Clear. HEART: S1 and S2, regular rate. ABDOMEN: Soft, not distended. EXTREMITIES: Foot with a negative pressure dressing. LABORATORY DATA: White cell count 7.7, hemoglobin 11.7, platelets 263. Creatinine is down to 1.2. Microbiology with Staphylococcus pseudintermedius with a broad susceptibility profile. ASSESSMENT AND DISCUSSION: Charcot with abscess, left plantar area, possible osteomyelitis, status post I and D. PICC line in place and we will switch her to ertapenem daily for protracted period of time. Discontinue vancomycin. Job ID: [id number]
[2019-09-26] MEDS: Acetaminophen 500 MG TAB PO PRN (20:35)
[2019-09-27] MEDS: MEROPENEM 1 GM/50 ML 1 GM in Premix Bag 1 BAG IVPB SCH ×3 (00:03→15:23)
[2019-09-27] MEDS: Levothyroxine Sodium 125 MCG TAB PO SCH (05:30)
[2019-09-27] MEDS: Acetaminophen 500 MG TAB PO PRN (08:54)
[2019-09-27] MEDS: Gabapentin 300 MG CAP PO SCH (08:55)
[2019-09-27] MEDS: Enoxaparin Sodium 40 MG/0.4 ML SYRINGE SC SCH (08:56)
[2019-09-27] MEDS ORDERED: Lisinopril 20 MG TAB PO SCH (09:00)
[2019-09-27 11:21] LABS: Vancomycin, Trough 8.5 ug/mL
--- NOTE | 2019-09-27 14:57 | PDOC.HOSPP ---
- Subjective Encounter Date: 09/27/19 Encounter Time: 11:15 Subjective: pt up in bed no complains. - Objective Vital Signs & Weight: Vital Signs (12 hours) Temp Pulse Resp BP BP Pulse Ox 09/27/19 11:24 97.9 F 88 20 166/86 H 98 09/27/19 08:55 165/89 H 09/27/19 08:00 93 L 09/27/19 07:46 97.6 F 83 18 165/89 H 93 L 09/27/19 04:53 97.7 F 78 16 152/79 H 92 L Weight Admit Weight 202 lb Weight 202 lb Result Diagrams: 09/25/19 10:01 09/25/19 10:01 Additional Labs: Accuchecks 09/27/19 09/27/19 09/26/19 11:42 04:43 19:21 POC Glucose 131 H 130 H 197 H 09/26/19 17:07 POC Glucose 155 H Hospitalist ROS - Review of Systems Cardiovascular: denies: chest pain, palpitations, orthopnea, paroxysmal noc. dyspnea, edema, light headedness, other Gastrointestinal: denies: nausea, vomiting, abdominal pain, diarrhea, constipation, melena, hematochezia, other Genitourinary: denies: dysuria, frequency, incontinence, hematuria, retention, other - Medication Medications: Active Medications Generic Name Dose Route Start Last Admin Trade Name Freq PRN Reason Stop Dose Admin Acetaminophen 1,000 mg 09/23/19 12:21 09/27/19 08:54 Tylenol PO 1,000 mg Q6H PRN Administration Moderate to Severe Pain (6-10) Enoxaparin Sodium 40 mg 09/23/19 09:00 09/27/19 08:56 Lovenox SC Not Given 0900 KRISTYN Gabapentin 600 mg 09/22/19 21:00 09/27/19 08:55 Neurontin PO 600 mg BID KRISTYN Administration Meropenem 1 gm/ Device 50 mls @ 100 mls/hr 09/23/19 16:00 09/27/19 08:56 IVPB 50 mls Q8H KRISTYN Administration Insulin Human Lispro 0 units 09/22/19 19:17 09/25/19 12:29 Humalog SC 2 unit .MODERATE SLIDING SC PRN Administration Moderate Correctional Scale Levothyroxine Sodium 125 mcg 09/25/19 06:00 09/27/19 05:30 Synthroid PO 125 mcg 0600 KRISTYN Administration Lisinopril 40 mg 09/27/19 09:00 09/27/19 08:55 Zestril PO 40 mg DAILY KRISTYN Administration Sodium Chloride 10 ml 09/23/19 09:00 09/27/19 08:56 Flush - Normal Saline IVF 10 ml Q12HR KRISTYN Administration Tramadol HCl 50 mg 09/23/19 12:21 09/23/19 22:32 Ultram PO 50 mg Q4H PRN Administration Moderate Pain (4-6) - Exam Neck: negative: supple, symmetric, no JVD, no thyromegaly, no lymphadenopathy, no carotid bruit, JVD Heart: negative: RRR, no murmur, no gallops, no rubs, normal peripheral pulses, irregular, diminshed peripheral pulses, murmur present, II/IV, III/IV Respiratory: negative: CTAB, no wheezes, no rales, no ronchi, normal chest expansion, no tachypnea, normal percussion, rales, rhonchi, tachypneic, wheezes Gastrointestinal: negative: soft, non-tender, non-distended, normal bowel sounds , no palpable masses, no hepatomegaly, no splenomegaly, no bruit, no guarding, no rigidity, tender to palpation, distended, diminished bowl sounds, voluntary guarding Hosp A/P (1) Cellulitis Code(s): L03.90 - CELLULITIS, UNSPECIFIED Status: Acute (2) Diabetes Code(s): E11.9 - TYPE 2 DIABETES MELLITUS WITHOUT COMPLICATIONS Status: Acute (3) HTN (hypertension) Code(s): I10 - ESSENTIAL (PRIMARY) HYPERTENSION Status: Acute (4) Osteomyelitis Code(s): M86.9 - OSTEOMYELITIS, UNSPECIFIED Status: Acute (5) Charcot's joint of foot Code(s): M14.679 - CHARCOT'S JOINT, UNSPECIFIED ANKLE AND FOOT Status: Acute (6) CKD (chronic kidney disease) stage 3, GFR 30-59 ml/min Code(s): N18.3 - CHRONIC KIDNEY DISEASE, STAGE 3 (MODERATE) Status: Acute - Plan spoke with ID will get mri of left foot. will continue abx for now. pt wants a second opinion since she did not like the option of amputation given surgeon. 09/23 pt to get i&d of her left foot. cx indicate staph will continue abx for now. she was given two options and she does not want to undergo amputation. will continue sliding scale insulin. 09/24 s/p I&D of plantar left foot wound. will continue current abx. clinical case manager consulted for wound care. she will also need a picc placed and iv abx. 09/25 will titrate pt's bp meds for better control. pt to get picc line. pt's wound vac has been set up. possible home in am. 09/26 pt medically stable she can be discharged once her abx and home health have been set up. i have added 2 bp meds given her elevated bp. cx indicated staphylococcus pseudointermedi.
[2019-09-27] MEDS ORDERED: Amlodipine 10 MG TAB PO SCH (15:00)
[2019-09-27 16:26] VITALS: BP 166/84; TEMP 97.5
[2019-09-28] MEDS ORDERED: Amlodipine 10 MG TAB PO SCH (09:00)
--- NOTE | 2019-09-30 09:00 | PQF ---
PARAMJIT PATEL RICHARD D MD [id number] CLINICAL DOCUMENTATION CLARIFICATION FORM: POST DISCHARGE Addendum to original discharge summary date: ____ Late entry note date: __ DATE:09/30/2019 ATTN:Royce Stephen Please exercise your independent, professional judgment in responding to the clarification form. Clinical indicators are provided on the bottom of this form for your review Please check appropriate box(s): [ ] Incision and Drainage only (No Debridement): Depth:[ ] Skin [ ] Subcutaneous [ ] Fascia [ ] Muscle [ ] Tendon [ ] Bone [ ] Other procedure diagnosis [ ] Unable to determine For continuity of documentation, please document condition throughout progress notes and discharge summary. Thank You. CLINICAL INDICATORS - SIGNS / SYMPTOMS / LABS OP note 09/23 "wound was already opened" OP note 09/23 "wound was explored and performed pulse irrigation" OP note 09/23 "small open wound that tracked towards foot deep to the plantar fascia extending to 4 to 5cm" OP note 09/23 "probably eroded right over the metatarsal and tendons" RISK FACTORS 64 years old female-HP 09/21 DM-HP 09/21 Left foot cellulitis-HP 09/21 Morbid obesity-Consult 09/21 OM of foot-Consult 09/21 Charcot's joint-Consult 09/21 Foot ulcer-Consult 09/21 CKD stage3-Query response 09/24 Sepsis-Query response 09/24 TREATMENTS: Lower extremity MRI-Collected 09/22 Incision and drainage-OP note 09/23 Vancomycin 2gm IV-JUL 10 IVF-JUL 10 Maxipime 2gm IV-JUL 10 (This form is maintained as a part of the permanent medical record) 2014 [employer]. All Rights Reserved [email or web address]
[2019-10-07 08:17] LABS: #Basophils 0.1 thou/uL (0.0-0.2); #Eosinphils 0.4 thou/uL (0.0-0.7); #Lymphocytes 1.9 thou/uL (1.20-3.40); #Monocytes 0.5 thou/uL (0.11-0.59); #Neutrophils 6.5 thou/uL (1.40-6.50); %Basophils 1.1 % (0.0-1.0); %Lymphocytes 20.4 % (21.0-51.0); %Monocytes 5.5 % (0.0-10.0); %Neutrophils 68.9 % (42.0-75.0); Hemoglobin 11.7 g/dL (12.0-16.0); Mean Corpuscular HGB CONC 30.1 g/dL (32.0-36.0); Mean Corpuscular Hemoglobin 26.1 pg (27.0-31.0); Mean Corpuscular Volume 86.9 fL (78.0-98.0); Mean Platelet Volume 11.9 fL (7.4-10.4); Platelet Count 347 thou/uL (130-400); RBC Distribution Width 12.6 % (11.5-14.5); Red Blood Cell (RBC) Count 4.46 mill/uL (4.20-5.40); White Blood Cell (WBC) Count 9.4 thou/uL (4.8-10.8)
[2019-10-07 08:29] LABS: ALT (SGPT) 10 U/L (8-55); AST (SGOT) 12 U/L (5-34); Albumin 3.4 g/dL (3.4-4.8); Alkaline Phosphatase 72 U/L (40-110); Anion Gap 16 mmol/L (10-20); BUN (Urea Nitrogen) 47 mg/dL (9.8-20.1); Bilirubin, Total 0.3 mg/dL (0.2-1.2); CRP (Inflammatory) 1.56 mg/dL (= or < 0.5); Calc. Creatinine Clearance 49 mL/min (70-130); Calcium 8.6 mg/dL (7.8-10.44); Carbon Dioxide 23 mmol/L (23-31); Chloride 104 mmol/L (98-107); Estimated GFR-MDRD 31; Globulin 4.7 g/dL (2.4-3.5); Glucose 172 mg/dL (80-115); Potassium 5.7 mmol/L (3.5-5.1); Protein, Total 8.1 g/dL (6.0-8.3); Sodium 137 mmol/L (136-145)
== END 2019-09-27 18:15 | disposition home health service (06) | DRG 854 ==
LOC: ERS 15:39 → T4-A 19:24
PROVIDERS: ADMIT Internal Medicine; ATTEND Internal Medicine
PROC: 0J9R0ZZ Drainage of Left Foot Subcutaneous Tissue and Fascia, Open Approach (ICD-10-PCS; 2019-09-24)
PROC: 02HV33Z Insertion of Infusion Device into Superior Vena Cava, Percutaneous Approach (ICD-10-PCS; principal; 2019-09-26)
PROC: B548ZZA Ultrasonography of Superior Vena Cava, Guidance (ICD-10-PCS; 2019-09-26)
DX: A41.9 Sepsis, unspecified organism (principal); L03.116 Cellulitis of left lower limb; M86.8X7 Other osteomyelitis, ankle and foot; L02.612 Cutaneous abscess of left foot; E11.69 Type 2 diabetes mellitus with other specified complication; E11.621 Type 2 diabetes mellitus with foot ulcer; L97.529 Non-pressure chronic ulcer of other part of left foot with unspecified severity; E03.9 Hypothyroidism, unspecified; E11.22 Type 2 diabetes mellitus with diabetic chronic kidney disease; E66.01 Morbid (severe) obesity due to excess calories; E11.610 Type 2 diabetes mellitus with diabetic neuropathic arthropathy; S93.335A Other dislocation of left foot, initial encounter; B95.8 Unspecified staphylococcus as the cause of diseases classified elsewhere; I12.9 Hypertensive chronic kidney disease with stage 1 through stage 4 chronic kidney disease, or unspecified chronic kidney disease; N18.3 Chronic kidney disease, stage 3 (moderate); Z88.7 Allergy status to serum and vaccine; Z90.49 Acquired absence of other specified parts of digestive tract; Z98.51 Tubal ligation status; Z88.1 Allergy status to other antibiotic agents; Z88.0 Allergy status to penicillin; Z79.84 Long term (current) use of oral hypoglycemic drugs; Z79.899 Other long term (current) drug therapy; Z68.35 Body mass index [BMI] 35.0-35.9, adult
CPT/HCPCS: 36415; 36416; 36569; 80048; 80053; 80202; 83036; 83735; 85025; 86140; 87070; 87077; 87186; 87205; 93005; 93010; 96365; A9579; C1751; J0360; J1644; J1650; J2001; J2185; J2704; J3370; J7030; S0020

== ENCOUNTER 2023-01-10 03:41 | Inpatient (IN) | payer OTHER ==
[2023-01-10 04:57] LABS: Troponin I 0.027 ng/mL (< 0.028)
[2023-01-10] MEDS ORDERED: Aspirin Chewable 81 MG TAB ONE (05:26)
[2023-01-10] MEDS ORDERED: Senokot S 8.6-50 MG TAB PO PRN (06:04)
[2023-01-10] MEDS ORDERED: Ondansetron ODT 4 MG TAB PO PRN (06:04)
[2023-01-10 08:07] VITALS: BMI 32.5
[2023-01-10] MEDS: Acetaminophen 325 MG TAB PO PRN (09:13)
[2023-01-10] MEDS: Famotidine 20 MG TAB PO SCH (09:13)
[2023-01-10] MEDS: Carvedilol 3.125 MG TAB PO SCH ×2 (09:13→20:59)
[2023-01-10] MEDS: Aspirin Chewable 81 MG TAB PO SCH (09:15)
[2023-01-10 09:25] LABS: #Eosinphils 0.1 thou/uL (0.0-0.7); #Monocytes 0.5 thou/uL (0.11-0.59); #Neutrophils 6.9 thou/uL (1.40-6.50); %Basophils 0.4 % (0.0-1.0); %Eosinophils 0.5 % (0.0-10.0); %Lymphocytes 18.6 % (21.0-51.0); %Monocytes 5.8 % (0.0-10.0); %Neutrophils 74.4 % (42.0-75.0); Hematocrit 30.5 % (36.0-47.0); Hemoglobin 9.4 g/dL (12.0-16.0); Mean Corpuscular HGB CONC 30.8 g/dL (32.0-36.0); Mean Corpuscular Hemoglobin 27.2 pg (27.0-31.0); Mean Corpuscular Volume 88.4 fl (78.0-98.0); Mean Platelet Volume 12.8 fL (7.4-10.4); Platelet Count 266 10x3/uL (130-400); RBC Distribution Width 16.6 % (11.5-14.5); Red Blood Cell (RBC) Count 3.45 mill/uL (4.20-5.40); White Blood Cell (WBC) Count 9.3 10x3/uL (4.8-10.8)
[2023-01-10 09:41] LABS: Hemoglobin A1c 5.7 % (4.0-6.0)
[2023-01-10 09:45] LABS: ALT (SGPT) 21 U/L (8-55); AST (SGOT) 16 U/L (5-34); Albumin 3.5 g/dL (3.4-4.8); Alkaline Phosphatase 69 U/L (40-110); Anion Gap 16 mmol/L (10-20); BUN (Urea Nitrogen) 27 mg/dL (9.8-20.1); Bilirubin, Total 0.5 mg/dL (0.2-1.2); Calc. Creatinine Clearance 46 mL/min (70-130); Calcium 8.9 mg/dL (7.8-10.44); Carbon Dioxide 17 mmol/L (23-31); Chloride 106 mmol/L (98-107); Estimated GFR 37; Globulin 3.8 g/dL (2.4-3.5); Glucose 99 mg/dL (80-115); Magnesium 1.4 mg/dL (1.6-2.6); Potassium 4.3 mmol/L (3.5-5.1); Protein, Total 7.3 g/dL (5.8-8.1); Sodium 135 mmol/L (136-145)
[2023-01-10] MEDS ORDERED: Methocarbamol 0.5 GM in Sodium Chloride 0.9% 100 ML IVPB PRN (10:34)
[2023-01-10] MEDS ORDERED: Magnesium 2 GM/50 ML(in water) 2 GM in Premix Bag 1 BAG IVPB SCH (10:45)
[2023-01-10 13:09] LABS: Troponin I 0.025 ng/mL (< 0.028)
[2023-01-10] MEDS: Furosemide 40 MG/4 ML VIAL SLOW IVP SCH (13:50)
[2023-01-10 14:06] LABS: Troponin I 0.021 ng/mL (< 0.028)
[2023-01-10 15:00] LABS: Bacteria/HPF None Seen HPF (None Seen); Bilirubin Negative (Negative); Blood, Urine 1+ (Negative); Clarity Clear (Clear); Glucose, Urine (Dipstick) Normal (Negative); Ketone, Urine Negative (Negative); Leukocyte Negative Leu/uL (Negative); Nitrite Negative (Negative); Protein, Urine (Dipstick) Negative (Neg-Trace); Specific Gravity, Urine 1.009 (1.002-1.036); Squamous Epithelial None Seen HPF (0-3); Urobilinogen Normal mg/dL (Less than 2); WBC/HPF 0-3 HPF (0-3)
[2023-01-10] MEDS: Gabapentin 300 MG CAP PO SCH (20:59)
[2023-01-10] MEDS ORDERED: Ipratropium/Albuterol 3 ML NEB ONE (21:12)
[2023-01-11 04:10] LABS: #Basophils 0.1 thou/uL (0.0-0.2); #Eosinphils 0.3 thou/uL (0.0-0.7); #Monocytes 0.6 thou/uL (0.11-0.59); #Neutrophils 5.5 thou/uL (1.40-6.50); %Basophils 0.8 % (0.0-1.0); %Eosinophils 3.4 % (0.0-10.0); %Lymphocytes 19.1 % (21.0-51.0); %Monocytes 7.4 % (0.0-10.0); %Neutrophils 68.9 % (42.0-75.0); Hemoglobin 8.2 g/dL (12.0-16.0); Mean Corpuscular HGB CONC 31.5 g/dL (32.0-36.0); Mean Corpuscular Hemoglobin 27.2 pg (27.0-31.0); Mean Corpuscular Volume 86.4 fl (78.0-98.0); Mean Platelet Volume 13.3 fL (7.4-10.4); Platelet Count 250 10x3/uL (130-400); RBC Distribution Width 16.4 % (11.5-14.5); Red Blood Cell (RBC) Count 3.01 mill/uL (4.20-5.40)
[2023-01-11 04:35] LABS: ALT (SGPT) 17 U/L (8-55); AST (SGOT) 13 U/L (5-34); Albumin 3.1 g/dL (3.4-4.8); Alkaline Phosphatase 63 U/L (40-110); Anion Gap 14 mmol/L (10-20); BUN (Urea Nitrogen) 26 mg/dL (9.8-20.1); Bilirubin, Total 0.5 mg/dL (0.2-1.2); Calc. Creatinine Clearance 47 mL/min (70-130); Calcium 8.4 mg/dL (7.8-10.44); Carbon Dioxide 21 mmol/L (23-31); Cardiac Risk 3.6 (Less than 4.5); Chloride 108 mmol/L (98-107); Cholesterol 124 mg/dl (< 200 Desired); Estimated GFR 37; Globulin 3.6 g/dL (2.4-3.5); Glucose 100 mg/dL (80-115); HDL Cholesterol 34 mg/dL (>60 Neg Risk); LDL Cholesterol, Calculated 66 mg/dL; Potassium 3.9 mmol/L (3.5-5.1); Protein, Total 6.7 g/dL (5.8-8.1); Sodium 139 mmol/L (136-145); Triglycerides 118 mg/dL (Less than 150)
[2023-01-11] MEDS: Furosemide 40 MG/4 ML VIAL SLOW IVP SCH ×2 (05:24→14:47)
[2023-01-11] MEDS: Levothyroxine Sodium 125 MCG TAB PO SCH (05:24)
[2023-01-11] MEDS: Lisinopril 20 MG TAB PO SCH (08:28)
[2023-01-11] MEDS: Carvedilol 3.125 MG TAB PO SCH (08:28)
[2023-01-11] MEDS: Gabapentin 300 MG CAP PO SCH ×3 (08:28→20:30)
[2023-01-11] MEDS: Famotidine 20 MG TAB PO SCH (08:29)
[2023-01-11] MEDS: Aspirin Chewable 81 MG TAB PO SCH (08:29)
[2023-01-11] MEDS ORDERED: Carvedilol 3.125 MG TAB PO SCH (10:27)
[2023-01-11] MEDS ORDERED: Electrolyte Replacement Protocol 1 EACH FS SCH (10:30)
[2023-01-11] MEDS ORDERED: Carvedilol 6.25 MG TAB PO SCH (10:45)
[2023-01-11 11:40] LABS: Phosphorus 4.4 mg/dL (2.3-4.7)
[2023-01-11 11:42] LABS: ALT (SGPT) 17 U/L (8-55); AST (SGOT) 15 U/L (5-34); Albumin 3.5 g/dL (3.4-4.8); Alkaline Phosphatase 73 U/L (40-110); Anion Gap 14 mmol/L (10-20); BUN (Urea Nitrogen) 24 mg/dL (9.8-20.1); Bilirubin, Total 0.5 mg/dL (0.2-1.2); Calc. Creatinine Clearance 43 mL/min (70-130); Calcium 8.7 mg/dL (7.8-10.44); Carbon Dioxide 24 mmol/L (23-31); Chloride 106 mmol/L (98-107); Estimated GFR 33; Globulin 3.9 g/dL (2.4-3.5); Glucose 146 mg/dL (80-115); Magnesium 1.6 mg/dL (1.6-2.6); Potassium 3.9 mmol/L (3.5-5.1); Protein, Total 7.4 g/dL (5.8-8.1); Sodium 140 mmol/L (136-145)
[2023-01-11 11:46] LABS: Troponin I 0.015 ng/mL (< 0.028)
[2023-01-11] MEDS ORDERED: Magnesium 2 GM/50 ML(in water) 2 GM in Premix Bag 1 BAG IVPB SCH (13:00)
[2023-01-11] MEDS: Carvedilol 6.25 MG TAB PO SCH (20:31)
[2023-01-11] MEDS: metFORMIN 500 MG TAB PO SCH (20:31)
[2023-01-11] MEDS ORDERED: Ipratropium/Albuterol 3 ML NEB NEB PRN (23:40)
[2023-01-12 03:57] LABS: #Basophils 0.1 thou/uL (0.0-0.2); #Eosinphils 0.6 thou/uL (0.0-0.7); #Monocytes 0.7 thou/uL (0.11-0.59); #Neutrophils 4.7 thou/uL (1.40-6.50); %Basophils 0.6 % (0.0-1.0); %Eosinophils 6.9 % (0.0-10.0); %Lymphocytes 25.9 % (21.0-51.0); %Monocytes 8.3 % (0.0-10.0); %Neutrophils 57.9 % (42.0-75.0); Hematocrit 25.8 % (36.0-47.0); Hemoglobin 8.1 g/dL (12.0-16.0); Mean Corpuscular HGB CONC 31.4 g/dL (32.0-36.0); Mean Corpuscular Hemoglobin 27.5 pg (27.0-31.0); Mean Corpuscular Volume 87.5 fl (78.0-98.0); Platelet Count 230 10x3/uL (130-400); RBC Distribution Width 16.6 % (11.5-14.5); Red Blood Cell (RBC) Count 2.95 mill/uL (4.20-5.40); White Blood Cell (WBC) Count 8.1 10x3/uL (4.8-10.8)
[2023-01-12 04:20] LABS: Anion Gap 14 mmol/L (10-20); BUN (Urea Nitrogen) 31 mg/dL (9.8-20.1); Calc. Creatinine Clearance 34 mL/min (70-130); Calcium 8.1 mg/dL (7.8-10.44); Carbon Dioxide 25 mmol/L (23-31); Chloride 104 mmol/L (98-107); Estimated GFR 26; Glucose 117 mg/dL (80-115); Potassium 3.8 mmol/L (3.5-5.1); Sodium 139 mmol/L (136-145)
[2023-01-12] MEDS: Furosemide 40 MG/4 ML VIAL SLOW IVP SCH ×2 (06:15→15:15)
[2023-01-12] MEDS: Levothyroxine Sodium 125 MCG TAB PO SCH (06:15)
[2023-01-12] MEDS: metFORMIN 500 MG TAB PO SCH ×2 (10:12→20:37)
[2023-01-12] MEDS: Lisinopril 20 MG TAB PO SCH (10:13)
[2023-01-12] MEDS: Carvedilol 6.25 MG TAB PO SCH ×2 (10:13→20:37)
[2023-01-12] MEDS: Aspirin Chewable 81 MG TAB PO SCH (10:13)
[2023-01-12] MEDS: Famotidine 20 MG TAB PO SCH (10:13)
[2023-01-12] MEDS: Gabapentin 300 MG CAP PO SCH ×3 (10:13→20:37)
[2023-01-12] MEDS: Melatonin 3 MG TAB PO PRN (20:38)
[2023-01-13 04:00] LABS: Hematocrit 26.8 % (36.0-47.0); Hemoglobin 8.3 g/dL (12.0-16.0); Platelet Count 227 10x3/uL (130-400)
[2023-01-13 04:29] LABS: Anion Gap 15 mmol/L (10-20); BUN (Urea Nitrogen) 41 mg/dL (9.8-20.1); Calc. Creatinine Clearance 36 mL/min (70-130); Carbon Dioxide 22 mmol/L (23-31); Chloride 105 mmol/L (98-107); Estimated GFR 28; Glucose 99 mg/dL (80-115); Iron 30 ug/dL (50-170); Potassium 4.2 mmol/L (3.5-5.1); Sodium 138 mmol/L (136-145)
[2023-01-13] MEDS: Levothyroxine Sodium 125 MCG TAB PO SCH (05:32)
[2023-01-13] MEDS: Gabapentin 300 MG CAP PO SCH ×3 (08:31→20:59)
[2023-01-13] MEDS: Furosemide 40 MG/4 ML VIAL SLOW IVP SCH (08:31)
[2023-01-13] MEDS: Famotidine 20 MG TAB PO SCH (08:32)
[2023-01-13] MEDS: Lisinopril 20 MG TAB PO SCH (08:32)
[2023-01-13] MEDS: metFORMIN 500 MG TAB PO SCH ×2 (08:32→21:00)
[2023-01-13] MEDS: Carvedilol 6.25 MG TAB PO SCH ×2 (08:32→20:59)
[2023-01-13] MEDS: Cholecalciferol 1,000 UNITS (25 MCG) TAB PO SCH (08:32)
[2023-01-13] MEDS: Aspirin Chewable 81 MG TAB PO SCH (08:32)
[2023-01-13] MEDS: Acetaminophen 325 MG TAB PO PRN (15:46)
[2023-01-13] MEDS: Calcium Carbonate 500 MG ChewTAB PO PRN (19:04)
[2023-01-13] MEDS: Melatonin 3 MG TAB PO PRN (20:59)
[2023-01-14 05:16] LABS: Anion Gap 14 mmol/L (10-20); BUN (Urea Nitrogen) 46 mg/dL (9.8-20.1); Calc. Creatinine Clearance 36 mL/min (70-130); Calcium 8.4 mg/dL (7.8-10.44); Carbon Dioxide 24 mmol/L (23-31); Chloride 104 mmol/L (98-107); Estimated GFR 27; Glucose 91 mg/dL (80-115); Potassium 4.5 mmol/L (3.5-5.1); Sodium 137 mmol/L (136-145)
[2023-01-14] MEDS: Levothyroxine Sodium 125 MCG TAB PO SCH (05:19)
[2023-01-14] MEDS: Furosemide 40 MG/4 ML VIAL SLOW IVP SCH (08:47)
[2023-01-14] MEDS: Lisinopril 20 MG TAB PO SCH (08:47)
[2023-01-14] MEDS: Loratadine 10 MG TAB PO SCH (08:47)
[2023-01-14] MEDS: metFORMIN 500 MG TAB PO SCH ×2 (08:47→20:09)
[2023-01-14] MEDS: Aspirin Chewable 81 MG TAB PO SCH (08:47)
[2023-01-14] MEDS: Cholecalciferol 1,000 UNITS (25 MCG) TAB PO SCH (08:47)
[2023-01-14] MEDS: Famotidine 20 MG TAB PO SCH (08:47)
[2023-01-14] MEDS: Gabapentin 300 MG CAP PO SCH ×3 (08:47→20:09)
[2023-01-14] MEDS: Carvedilol 6.25 MG TAB PO SCH ×2 (08:48→20:09)
[2023-01-14] MEDS: Acetaminophen 325 MG TAB PO PRN (20:09)
[2023-01-15 04:17] LABS: Anion Gap 13 mmol/L (10-20); BUN (Urea Nitrogen) 45 mg/dL (9.8-20.1); Calc. Creatinine Clearance 45 mL/min (70-130); Calcium 8.5 mg/dL (7.8-10.44); Carbon Dioxide 27 mmol/L (23-31); Chloride 104 mmol/L (98-107); Estimated GFR 35; Glucose 85 mg/dL (80-115); Potassium 4.5 mmol/L (3.5-5.1); Sodium 139 mmol/L (136-145)
[2023-01-15] MEDS: Levothyroxine Sodium 125 MCG TAB PO SCH (05:04)
[2023-01-15] MEDS: metFORMIN 500 MG TAB PO SCH ×2 (08:40→20:25)
[2023-01-15] MEDS: Cholecalciferol 1,000 UNITS (25 MCG) TAB PO SCH (08:40)
[2023-01-15] MEDS: Aspirin Chewable 81 MG TAB PO SCH (08:40)
[2023-01-15] MEDS: Gabapentin 300 MG CAP PO SCH ×3 (08:41→20:24)
[2023-01-15] MEDS: Loratadine 10 MG TAB PO SCH (08:41)
[2023-01-15] MEDS: Furosemide 40 MG/4 ML VIAL SLOW IVP SCH (08:41)
[2023-01-15] MEDS: Lisinopril 20 MG TAB PO SCH (08:41)
[2023-01-15] MEDS: Famotidine 20 MG TAB PO SCH (08:41)
[2023-01-15] MEDS: Carvedilol 6.25 MG TAB PO SCH ×2 (08:41→20:23)
[2023-01-16 04:31] LABS: Anion Gap 13 mmol/L (10-20); BUN (Urea Nitrogen) 38 mg/dL (9.8-20.1); Calc. Creatinine Clearance 51 mL/min (70-130); Calcium 8.8 mg/dL (7.8-10.44); Carbon Dioxide 28 mmol/L (23-31); Chloride 102 mmol/L (98-107); Estimated GFR 43; Glucose 93 mg/dL (80-115); Potassium 4.3 mmol/L (3.5-5.1); Sodium 139 mmol/L (136-145)
[2023-01-16] MEDS: Levothyroxine Sodium 125 MCG TAB PO SCH (04:59)
[2023-01-16] MEDS: Gabapentin 300 MG CAP PO SCH ×3 (12:10→21:18)
[2023-01-16] MEDS: metFORMIN 500 MG TAB PO SCH ×2 (12:10→21:17)
[2023-01-16] MEDS: Loratadine 10 MG TAB PO SCH (12:11)
[2023-01-16] MEDS: Furosemide 40 MG/4 ML VIAL SLOW IVP SCH (12:12)
[2023-01-16] MEDS: Lisinopril 20 MG TAB PO SCH (12:12)
[2023-01-16] MEDS: Carvedilol 6.25 MG TAB PO SCH ×2 (12:12→21:18)
[2023-01-16] MEDS: Cholecalciferol 1,000 UNITS (25 MCG) TAB PO SCH (12:12)
[2023-01-16] MEDS: Aspirin Chewable 81 MG TAB PO SCH (12:17)
[2023-01-16] MEDS: Famotidine 20 MG TAB PO SCH (12:17)
[2023-01-16] MEDS: Melatonin 3 MG TAB PO PRN (21:18)
[2023-01-16] MEDS: Calcium Carbonate 500 MG ChewTAB PO PRN (23:48)
[2023-01-17] MEDS: Levothyroxine Sodium 125 MCG TAB PO SCH (05:44)
[2023-01-17 06:27] LABS: Anion Gap 13 mmol/L (10-20); BUN (Urea Nitrogen) 34 mg/dL (9.8-20.1); Calc. Creatinine Clearance 46 mL/min (70-130); Calcium 8.8 mg/dL (7.8-10.44); Carbon Dioxide 28 mmol/L (23-31); Chloride 101 mmol/L (98-107); Estimated GFR 37; Glucose 93 mg/dL (80-115); Potassium 4.6 mmol/L (3.5-5.1); Sodium 137 mmol/L (136-145)
[2023-01-17] MEDS: Carvedilol 6.25 MG TAB PO SCH (08:36)
[2023-01-17] MEDS: metFORMIN 500 MG TAB PO SCH ×2 (08:36→21:06)
[2023-01-17] MEDS: Lisinopril 20 MG TAB PO SCH (08:37)
[2023-01-17] MEDS: Aspirin Chewable 81 MG TAB PO SCH (08:37)
[2023-01-17] MEDS: Gabapentin 300 MG CAP PO SCH ×3 (08:37→21:07)
[2023-01-17] MEDS: Loratadine 10 MG TAB PO SCH (08:38)
[2023-01-17] MEDS: Furosemide 40 MG/4 ML VIAL SLOW IVP SCH (08:38)
[2023-01-17] MEDS: Famotidine 20 MG TAB PO SCH (08:38)
[2023-01-17] MEDS: Cholecalciferol 1,000 UNITS (25 MCG) TAB PO SCH (08:38)
[2023-01-17] MEDS ORDERED: Regadenoson 0.4 MG/5 ML SYRINGE ONE (09:31)
[2023-01-17] MEDS ORDERED: Atorvastatin Calcium 40 MG TAB PO SCH (21:00)
[2023-01-17] MEDS: Melatonin 3 MG TAB PO PRN (21:07)
[2023-01-18] MEDS: Levothyroxine Sodium 125 MCG TAB PO SCH (05:15)
[2023-01-18] MEDS: Furosemide 40 MG/4 ML VIAL SLOW IVP SCH (08:13)
[2023-01-18] MEDS: Gabapentin 300 MG CAP PO SCH ×2 (08:13→15:28)
[2023-01-18] MEDS: metFORMIN 500 MG TAB PO SCH (08:14)
[2023-01-18] MEDS: Lisinopril 20 MG TAB PO SCH (08:14)
[2023-01-18] MEDS: Cholecalciferol 1,000 UNITS (25 MCG) TAB PO SCH (08:15)
[2023-01-18] MEDS: Aspirin Chewable 81 MG TAB PO SCH (08:15)
[2023-01-18] MEDS: Carvedilol 6.25 MG TAB PO SCH ×2 (08:16→17:43)
[2023-01-18] MEDS: Loratadine 10 MG TAB PO SCH (08:16)
[2023-01-18] MEDS: Famotidine 20 MG TAB PO SCH (08:16)
[2023-01-18] MEDS ORDERED: Clopidogrel Bisulfate 75 MG TAB PO SCH (09:00)
[2023-01-18] MEDS ORDERED: Loperamide HCl 2 MG CAP PO PRN (10:00)
[2023-01-18] MEDS ORDERED: Diphenoxylate HCl/Atropine Tablet PO PRN (15:10)
[2023-01-18 15:42] VITALS: TEMP 98.2
[2023-01-18 17:43] VITALS: BP 112/67
== END 2023-01-18 19:07 | disposition home or self-care (01) | DRG 291 ==
LOC: ERS 03:41 → IMCU/EMU 06:14 → 2NO 01-12 18:14
PROVIDERS: ADMIT Student in an Organized Health Care Education/Training Program; ATTEND Internal Medicine
DX: I13.0 Hypertensive heart and chronic kidney disease with heart failure and stage 1 through stage 4 chronic kidney disease, or unspecified chronic kidney disease (principal); I50.23 Acute on chronic systolic (congestive) heart failure; J96.01 Acute respiratory failure with hypoxia; E11.22 Type 2 diabetes mellitus with diabetic chronic kidney disease; E03.9 Hypothyroidism, unspecified; N18.30 Chronic kidney disease, stage 3 unspecified; E83.42 Hypomagnesemia; D63.1 Anemia in chronic kidney disease; E66.9 Obesity, unspecified; I42.0 Dilated cardiomyopathy; Z79.899 Other long term (current) drug therapy; Z88.0 Allergy status to penicillin; Z88.7 Allergy status to serum and vaccine; Z79.84 Long term (current) use of oral hypoglycemic drugs; Z90.49 Acquired absence of other specified parts of digestive tract; Z90.89 Acquired absence of other organs; Z98.51 Tubal ligation status; Z83.3 Family history of diabetes mellitus; Z82.49 Family history of ischemic heart disease and other diseases of the circulatory system
CPT/HCPCS: 36415; 36416; 71045; 78452; 80048; 80053; 80061; 82274; 82306; 82728; 83036; 83540; 83735; 83880; 84100; 84443; 84484; 85014; 85018; 85025; 85046; 85049; 93005; 93010; 93017; 93306; 93798; 94640; 94660; A9500; J1650; J1940; J2785; J3475; J7620

== ENCOUNTER 2023-02-03 13:10 | Inpatient (IN) | payer OTHER ==
[~2023-02-03 13:10] MED LIST changes: +Furosemide 40 MG/4 ML VIAL SLOW IVP SCH; -Heparin 1,000 UNITS/ML VIAL ONE
[2023-02-03 15:41] LABS: Troponin I 0.107 ng/mL (< 0.028)
[2023-02-03] MEDS ORDERED: Diphenoxylate HCl/Atropine Tablet PO PRN (16:38)
[2023-02-03] MEDS ORDERED: Furosemide 40 MG/4 ML VIAL ONE (17:21)
[2023-02-03 19:08] LABS: #Basophils 0.1 thou/uL (0.0-0.2); #Monocytes 0.9 thou/uL (0.11-0.59); %Basophils 0.3 % (0.0-1.0); %Lymphocytes 4.8 % (21.0-51.0); %Monocytes 4.4 % (0.0-10.0); %Neutrophils 89.9 % (42.0-75.0); Hematocrit 24.4 % (36.0-47.0); Hemoglobin 7.7 g/dL (12.0-16.0); Mean Corpuscular HGB CONC 31.6 g/dL (32.0-36.0); Mean Corpuscular Hemoglobin 27.1 pg (27.0-31.0); Mean Corpuscular Volume 85.9 fl (78.0-98.0); Platelet Count 193 10x3/uL (130-400); RBC Distribution Width 16.8 % (11.5-14.5); Red Blood Cell (RBC) Count 2.84 mill/uL (4.20-5.40); White Blood Cell (WBC) Count 21.1 10x3/uL (4.8-10.8)
[2023-02-03] MEDS ORDERED: Piperacillin/Tazobactam 3.375 GM in Sodium Chloride 0.9% 100 ML IVPB SCH ×2 (19:15→20:00)
[2023-02-03 19:24] VITALS: BMI 32.3
[2023-02-03 19:39] LABS: Troponin I 0.088 ng/mL (< 0.028)
[2023-02-03 19:42] LABS: ALT (SGPT) 10 U/L (8-55); AST (SGOT) 16 U/L (5-34); Albumin 3.4 g/dL (3.4-4.8); Alkaline Phosphatase 68 U/L (40-110); Anion Gap 17 mmol/L (10-20); BUN (Urea Nitrogen) 61 mg/dL (9.8-20.1); Bilirubin, Total 0.7 mg/dL (0.2-1.2); Calc. Creatinine Clearance 29 mL/min (70-130); Calcium 7.8 mg/dL (7.8-10.44); Carbon Dioxide 20 mmol/L (23-31); Chloride 100 mmol/L (98-107); Estimated GFR 21; Globulin 3.6 g/dL (2.4-3.5); Glucose 205 mg/dL (80-115); Potassium 4.3 mmol/L (3.5-5.1); Sodium 133 mmol/L (136-145)
[2023-02-03] MEDS ORDERED: Glucagon 1 MG/ML KIT IM PRN (19:50)
[2023-02-03] MEDS ORDERED: HumaLOG 300 UNITS/3 ML VIAL SC PRN (19:50)
[2023-02-03] MEDS ORDERED: Dextrose 50% Abboject 50 ML SYRINGE SLOW IVP PRN (19:50)
[2023-02-03] MEDS ORDERED: Dextrose 5% in Water 1,000 ML IV PRN (19:50)
[2023-02-03] MEDS: Azithromycin 500 MG in Sodium Chloride 0.9% 250 ML 250 ML IVPB SCH (20:21)
[2023-02-03] MEDS: Atorvastatin Calcium 40 MG TAB PO SCH (20:22)
[2023-02-03] MEDS: Carvedilol 6.25 MG TAB PO SCH (20:22)
[2023-02-03] MEDS: Gabapentin 300 MG CAP PO SCH (20:22)
[2023-02-03] MEDS: cefTRIAXone\\ROCEPHIN 1 GM in Sodium Chloride 0.9% 100 ML IVPB SCH (20:23)
[2023-02-03] MEDS: Ondansetron PF 4 MG/2 ML Vial IVP PRN (21:18)
[2023-02-04 00:31] LABS: Legionella Urinary Ag Negative (Negative); Strep pneumo Urine Ag NEGATIVE (NEGATIVE)
[2023-02-04] MEDS: Levothyroxine Sodium 125 MCG TAB PO SCH (05:40)
[2023-02-04] MEDS: Furosemide 40 MG/4 ML VIAL SLOW IVP SCH ×2 (05:40→15:11)
[2023-02-04 06:45] LABS: #Basophils 0.1 thou/uL (0.0-0.2); #Eosinphils 0.1 thou/uL (0.0-0.7); #Monocytes 0.7 thou/uL (0.11-0.59); #Neutrophils 12.4 thou/uL (1.40-6.50); %Basophils 0.3 % (0.0-1.0); %Eosinophils 0.5 % (0.0-10.0); %Lymphocytes 8.7 % (21.0-51.0); %Monocytes 4.5 % (0.0-10.0); %Neutrophils 85.3 % (42.0-75.0); Hematocrit 24.7 % (36.0-47.0); Hemoglobin 7.5 g/dL (12.0-16.0); Mean Corpuscular HGB CONC 30.4 g/dL (32.0-36.0); Mean Corpuscular Hemoglobin 26.8 pg (27.0-31.0); Mean Corpuscular Volume 88.2 fl (78.0-98.0); Platelet Count 140 10x3/uL (130-400); RBC Distribution Width 16.7 % (11.5-14.5); White Blood Cell (WBC) Count 14.5 10x3/uL (4.8-10.8)
[2023-02-04 07:14] LABS: ALT (SGPT) 21 U/L (8-55); AST (SGOT) 30 U/L (5-34); Albumin 3.2 g/dL (3.4-4.8); Alkaline Phosphatase 87 U/L (40-110); Anion Gap 17 mmol/L (10-20); BUN (Urea Nitrogen) 66 mg/dL (9.8-20.1); Bilirubin, Total 0.4 mg/dL (0.2-1.2); Calc. Creatinine Clearance 26 mL/min (70-130); Carbon Dioxide 20 mmol/L (23-31); Chloride 102 mmol/L (98-107); Estimated GFR 19; Globulin 3.8 g/dL (2.4-3.5); Glucose 174 mg/dL (80-115); Potassium 4.4 mmol/L (3.5-5.1); Sodium 135 mmol/L (136-145)
[2023-02-04] MEDS: Carvedilol 6.25 MG TAB PO SCH (09:57)
[2023-02-04] MEDS: Aspirin Chewable 81 MG TAB PO SCH (09:57)
[2023-02-04] MEDS: Cholecalciferol 1,000 UNITS (25 MCG) TAB PO SCH (09:57)
[2023-02-04] MEDS: Potassium Chloride 10 MEQ TAB PO SCH (09:57)
[2023-02-04] MEDS: Gabapentin 300 MG CAP PO SCH ×2 (09:58→20:43)
[2023-02-04] MEDS ORDERED: DOBUTamine 500 mg/250 ml 250 ML ONE (10:26)
[2023-02-04] MEDS ORDERED: DOBUTamine 500 mg/250 ml 250 ML IVPB SCH (10:30)
[2023-02-04] MEDS ORDERED: Acetaminophen 325 MG TAB PO PRN (12:10)
[2023-02-04] MEDS ORDERED: Lidocaine 4% Patch TD SCH (12:15)
[2023-02-04] MEDS ORDERED: Ipratropium/Albuterol 3 ML NEB NEB PRN (15:00)
[2023-02-04] MEDS: Lidocaine 4% Patch TD SCH (15:11)
[2023-02-04] MEDS: Azithromycin 500 MG in Sodium Chloride 0.9% 250 ML 250 ML IVPB SCH (19:49)
[2023-02-04] MEDS ORDERED: HumaLOG 300 UNITS/3 ML VIAL SC PRN (20:33)
[2023-02-04] MEDS: Atorvastatin Calcium 40 MG TAB PO SCH (20:43)
[2023-02-04] MEDS: Ondansetron PF 4 MG/2 ML Vial IVP PRN (21:04)
[2023-02-04] MEDS: cefTRIAXone\\ROCEPHIN 1 GM in Sodium Chloride 0.9% 100 ML IVPB SCH (21:04)
[2023-02-05] MEDS: Transdermal Patch Removal TOP SCH (01:28)
[2023-02-05 04:05] LABS: #Eosinphils 0.1 thou/uL (0.0-0.7); #Monocytes 0.5 thou/uL (0.11-0.59); #Neutrophils 8.1 thou/uL (1.40-6.50); %Basophils 0.3 % (0.0-1.0); %Eosinophils 1.1 % (0.0-10.0); %Lymphocytes 10.2 % (21.0-51.0); %Monocytes 4.7 % (0.0-10.0); Hematocrit 22.2 % (36.0-47.0); Hemoglobin 6.7 g/dL (12.0-16.0); Mean Corpuscular HGB CONC 30.2 g/dL (32.0-36.0); Mean Corpuscular Hemoglobin 26.6 pg (27.0-31.0); Mean Corpuscular Volume 88.1 fl (78.0-98.0); Platelet Count 144 10x3/uL (130-400); RBC Distribution Width 16.6 % (11.5-14.5); Red Blood Cell (RBC) Count 2.52 mill/uL (4.20-5.40); White Blood Cell (WBC) Count 9.8 10x3/uL (4.8-10.8)
[2023-02-05 04:33] LABS: Anion Gap 15 mmol/L (10-20); BUN (Urea Nitrogen) 71 mg/dL (9.8-20.1); Calc. Creatinine Clearance 29 mL/min (70-130); Calcium 7.6 mg/dL (7.8-10.44); Carbon Dioxide 21 mmol/L (23-31); Chloride 103 mmol/L (98-107); Estimated GFR 21; Glucose 154 mg/dL (80-115); Magnesium 1.8 mg/dL (1.6-2.6); Sodium 135 mmol/L (136-145)
[2023-02-05] MEDS: Furosemide 40 MG/4 ML VIAL SLOW IVP SCH ×2 (05:07→14:40)
[2023-02-05] MEDS: Levothyroxine Sodium 125 MCG TAB PO SCH (05:07)
[2023-02-05] MEDS: Cholecalciferol 1,000 UNITS (25 MCG) TAB PO SCH (07:56)
[2023-02-05] MEDS: Aspirin Chewable 81 MG TAB PO SCH (07:56)
[2023-02-05] MEDS: Gabapentin 300 MG CAP PO SCH ×2 (07:56→20:12)
[2023-02-05] MEDS: Potassium Chloride 10 MEQ TAB PO SCH (07:56)
[2023-02-05 08:51] LABS: Iron 11 ug/dL (50-170); Iron Binding Capacity, Total 176 mcg/dL (265-497)
[2023-02-05] MEDS ORDERED: Lidocaine 4% Patch TD SCH (09:00)
[2023-02-05 09:58] LABS: Ferritin 824.73 ng/mL (10-291)
[2023-02-05] MEDS: traMADol HCl 50 MG TAB PO PRN (10:41)
[2023-02-05] MEDS ORDERED: EPOETIN ALFA-EPBX (ESRD) 10,000 UNITS/ML VIAL SC SCH (12:00)
[2023-02-05] MEDS: Lidocaine 4% Patch TD SCH (14:41)
[2023-02-05] MEDS: Azithromycin 500 MG in Sodium Chloride 0.9% 250 ML 250 ML IVPB SCH (20:11)
[2023-02-05] MEDS: cefTRIAXone\\ROCEPHIN 1 GM in Sodium Chloride 0.9% 100 ML IVPB SCH (20:12)
[2023-02-05] MEDS: Atorvastatin Calcium 40 MG TAB PO SCH (20:12)
[2023-02-05] MEDS: Docusate 100 MG CAP PO PRN (21:34)
[2023-02-06] MEDS: Transdermal Patch Removal TOP SCH (02:22)
[2023-02-06 05:07] LABS: #Eosinphils 0.6 thou/uL (0.0-0.7); #Monocytes 0.6 thou/uL (0.11-0.59); #Neutrophils 5.5 thou/uL (1.40-6.50); %Basophils 0.4 % (0.0-1.0); %Lymphocytes 17.3 % (21.0-51.0); %Monocytes 7.6 % (0.0-10.0); %Neutrophils 67.3 % (42.0-75.0); Hematocrit 25.8 % (36.0-47.0); Mean Corpuscular Hemoglobin 27.1 pg (27.0-31.0); Mean Corpuscular Volume 87.5 fl (78.0-98.0); Platelet Count 151 10x3/uL (130-400); RBC Distribution Width 16.3 % (11.5-14.5); Red Blood Cell (RBC) Count 2.95 mill/uL (4.20-5.40); White Blood Cell (WBC) Count 8.1 10x3/uL (4.8-10.8)
[2023-02-06 05:31] LABS: Anion Gap 14 mmol/L (10-20); BUN (Urea Nitrogen) 66 mg/dL (9.8-20.1); Calc. Creatinine Clearance 35 mL/min (70-130); Calcium 7.8 mg/dL (7.8-10.44); Carbon Dioxide 25 mmol/L (23-31); Chloride 103 mmol/L (98-107); Estimated GFR 26; Glucose 97 mg/dL (80-115); Potassium 4.1 mmol/L (3.5-5.1); Sodium 138 mmol/L (136-145)
[2023-02-06] MEDS: Furosemide 40 MG/4 ML VIAL SLOW IVP SCH ×2 (06:05→13:23)
[2023-02-06] MEDS: Levothyroxine Sodium 125 MCG TAB PO SCH (06:05)
[2023-02-06] MEDS: traMADol HCl 50 MG TAB PO PRN ×2 (06:06→17:33)
[2023-02-06] MEDS: Gabapentin 300 MG CAP PO SCH ×2 (08:07→20:45)
[2023-02-06] MEDS: Aspirin Chewable 81 MG TAB PO SCH (08:08)
[2023-02-06] MEDS: Potassium Chloride 10 MEQ TAB PO SCH (08:08)
[2023-02-06] MEDS: Docusate 100 MG CAP PO PRN ×2 (08:08→20:45)
[2023-02-06] MEDS: Cholecalciferol 1,000 UNITS (25 MCG) TAB PO SCH (08:08)
[2023-02-06] MEDS: Lidocaine 4% Patch TD SCH (13:23)
[2023-02-06] MEDS: Carvedilol 3.125 MG TAB PO SCH (17:33)
[2023-02-06] MEDS: Azithromycin 500 MG in Sodium Chloride 0.9% 250 ML 250 ML IVPB SCH (20:44)
[2023-02-06] MEDS: Atorvastatin Calcium 40 MG TAB PO SCH (20:45)
[2023-02-06] MEDS: Isosorbide Dinitrate 5 MG TAB PO SCH (20:45)
[2023-02-06] MEDS: hydrALAZINE 10 MG TAB PO SCH (20:45)
[2023-02-06] MEDS: cefTRIAXone\\ROCEPHIN 1 GM in Sodium Chloride 0.9% 100 ML IVPB SCH (20:45)
[2023-02-07] MEDS: Transdermal Patch Removal TOP SCH (01:30)
[2023-02-07] MEDS: Furosemide 40 MG/4 ML VIAL SLOW IVP SCH ×2 (05:47→13:59)
[2023-02-07] MEDS: Levothyroxine Sodium 125 MCG TAB PO SCH (05:47)
[2023-02-07] MEDS: Gabapentin 300 MG CAP PO SCH (08:05)
[2023-02-07] MEDS: Cholecalciferol 1,000 UNITS (25 MCG) TAB PO SCH (08:05)
[2023-02-07] MEDS: Docusate 100 MG CAP PO PRN (08:05)
[2023-02-07] MEDS: Isosorbide Dinitrate 5 MG TAB PO SCH ×3 (08:05→20:05)
[2023-02-07] MEDS: Potassium Chloride 10 MEQ TAB PO SCH (08:05)
[2023-02-07] MEDS: hydrALAZINE 10 MG TAB PO SCH ×3 (08:06→20:05)
[2023-02-07] MEDS: Carvedilol 3.125 MG TAB PO SCH ×2 (08:06→17:17)
[2023-02-07] MEDS: Aspirin Chewable 81 MG TAB PO SCH (08:06)
[2023-02-07] MEDS ORDERED: Loratadine 10 MG TAB PO PRN (11:03)
[2023-02-07] MEDS ORDERED: DOBUTamine 500 mg/250 ml 250 ML IVPB SCH (11:04)
[2023-02-07] MEDS: Lidocaine 4% Patch TD SCH (13:59)
[2023-02-07] MEDS: Gabapentin 400 MG CAP PO SCH (20:05)
[2023-02-07] MEDS: Atorvastatin Calcium 40 MG TAB PO SCH (20:05)
[2023-02-07] MEDS: traMADol HCl 50 MG TAB PO PRN (20:06)
[2023-02-07] MEDS ORDERED: Sulfameth/Trimethoprim DS 800-160mg TAB PO SCH (21:00)
[2023-02-08] MEDS: Transdermal Patch Removal TOP SCH (02:00)
[2023-02-08 04:37] LABS: #Basophils 0.1 thou/uL (0.0-0.2); #Eosinphils 0.5 thou/uL (0.0-0.7); #Monocytes 0.6 thou/uL (0.11-0.59); #Neutrophils 4.6 thou/uL (1.40-6.50); %Basophils 0.7 % (0.0-1.0); %Eosinophils 6.6 % (0.0-10.0); %Monocytes 8.2 % (0.0-10.0); %Neutrophils 60.8 % (42.0-75.0); Hematocrit 28.7 % (36.0-47.0); Mean Corpuscular HGB CONC 31.4 g/dL (32.0-36.0); Mean Corpuscular Hemoglobin 27.1 pg (27.0-31.0); Mean Corpuscular Volume 86.4 fl (78.0-98.0); Mean Platelet Volume 13.5 fL (7.4-10.4); Platelet Count 191 10x3/uL (130-400); RBC Distribution Width 15.9 % (11.5-14.5); Red Blood Cell (RBC) Count 3.32 mill/uL (4.20-5.40); White Blood Cell (WBC) Count 7.6 10x3/uL (4.8-10.8)
[2023-02-08] MEDS: Levothyroxine Sodium 125 MCG TAB PO SCH (05:22)
[2023-02-08] MEDS: Furosemide 40 MG/4 ML VIAL SLOW IVP SCH ×2 (05:22→13:59)
[2023-02-08 05:26] LABS: Anion Gap 14 mmol/L (10-20); BUN (Urea Nitrogen) 35 mg/dL (9.8-20.1); Calc. Creatinine Clearance 51 mL/min (70-130); Calcium 8.3 mg/dL (7.8-10.44); Carbon Dioxide 31 mmol/L (23-31); Chloride 97 mmol/L (98-107); Estimated GFR 43; Glucose 111 mg/dL (80-115); Sodium 138 mmol/L (136-145)
[2023-02-08] MEDS: Aspirin Chewable 81 MG TAB PO SCH (08:21)
[2023-02-08] MEDS: Carvedilol 3.125 MG TAB PO SCH ×2 (08:21→16:54)
[2023-02-08] MEDS: Sulfameth/Trimethoprim DS 800-160mg TAB PO SCH ×2 (08:21→20:15)
[2023-02-08] MEDS: Cholecalciferol 1,000 UNITS (25 MCG) TAB PO SCH (08:21)
[2023-02-08] MEDS: Isosorbide Dinitrate 5 MG TAB PO SCH ×3 (08:22→20:15)
[2023-02-08] MEDS: Gabapentin 400 MG CAP PO SCH ×3 (08:22→20:15)
[2023-02-08] MEDS: Fluticasone Propionate Nasal Spray 16 gm Bottle NASAL SCH (08:23)
[2023-02-08] MEDS: hydrALAZINE 10 MG TAB PO SCH ×3 (08:23→21:03)
[2023-02-08] MEDS: Docusate 100 MG CAP PO PRN ×2 (11:42→21:03)
[2023-02-08] MEDS: traMADol HCl 50 MG TAB PO PRN (11:42)
[2023-02-08] MEDS: Lidocaine 4% Patch TD SCH (14:02)
[2023-02-08] MEDS: Atorvastatin Calcium 40 MG TAB PO SCH (20:15)
[2023-02-09] MEDS: Transdermal Patch Removal TOP SCH (02:47)
[2023-02-09 03:40] LABS: #Basophils 0.1 thou/uL (0.0-0.2); #Eosinphils 0.6 thou/uL (0.0-0.7); #Monocytes 0.7 thou/uL (0.11-0.59); #Neutrophils 5.2 thou/uL (1.40-6.50); %Basophils 0.7 % (0.0-1.0); %Eosinophils 6.8 % (0.0-10.0); %Lymphocytes 22.6 % (21.0-51.0); %Monocytes 8.1 % (0.0-10.0); %Neutrophils 61.2 % (42.0-75.0); Hematocrit 30.4 % (36.0-47.0); Hemoglobin 9.5 g/dL (12.0-16.0); Mean Corpuscular HGB CONC 31.3 g/dL (32.0-36.0); Mean Corpuscular Hemoglobin 26.8 pg (27.0-31.0); Mean Corpuscular Volume 85.6 fl (78.0-98.0); Mean Platelet Volume 13.3 fL (7.4-10.4); Platelet Count 210 10x3/uL (130-400); RBC Distribution Width 16.1 % (11.5-14.5); Red Blood Cell (RBC) Count 3.55 mill/uL (4.20-5.40); White Blood Cell (WBC) Count 8.6 10x3/uL (4.8-10.8)
[2023-02-09 04:10] LABS: Anion Gap 14 mmol/L (10-20); BUN (Urea Nitrogen) 31 mg/dL (9.8-20.1); Calc. Creatinine Clearance 37 mL/min (70-130); Calcium 8.6 mg/dL (7.8-10.44); Carbon Dioxide 31 mmol/L (23-31); Chloride 93 mmol/L (98-107); Estimated GFR 29; Glucose 109 mg/dL (80-115); Potassium 4.3 mmol/L (3.5-5.1); Sodium 134 mmol/L (136-145)
[2023-02-09] MEDS: Furosemide 40 MG/4 ML VIAL SLOW IVP SCH (05:17)
[2023-02-09] MEDS: Levothyroxine Sodium 125 MCG TAB PO SCH (05:17)
[2023-02-09] MEDS: Gabapentin 400 MG CAP PO SCH ×2 (10:08→14:21)
[2023-02-09] MEDS: Cholecalciferol 1,000 UNITS (25 MCG) TAB PO SCH (10:09)
[2023-02-09] MEDS: Isosorbide Dinitrate 5 MG TAB PO SCH ×2 (10:09→14:20)
[2023-02-09] MEDS: hydrALAZINE 10 MG TAB PO SCH ×2 (10:09→14:21)
[2023-02-09] MEDS: Carvedilol 3.125 MG TAB PO SCH ×2 (10:10→18:18)
[2023-02-09] MEDS: Aspirin Chewable 81 MG TAB PO SCH (10:10)
[2023-02-09] MEDS: Fluticasone Propionate Nasal Spray 16 gm Bottle NASAL SCH (10:10)
[2023-02-09 11:47] VITALS: TEMP 96.6
[2023-02-09] MEDS: Sulfameth/Trimethoprim DS 800-160mg TAB PO SCH (13:36)
[2023-02-09] MEDS: Lidocaine 4% Patch TD SCH (14:20)
[2023-02-09 14:21] VITALS: BP 125/69
[2023-02-10] MEDS ORDERED: Furosemide 40 MG TAB PO SCH (07:30)
[2023-02-10] MEDS ORDERED: Sulfameth/Trimethoprim DS 800-160mg TAB PO SCH (09:00)
== END 2023-02-09 19:01 | disposition home or self-care (01) | DRG 871 ==
LOC: ERS 13:10 → IMCU/EMU 14:56
PROVIDERS: ADMIT Family Medicine; ATTEND Family Medicine
PROC: 3E03329 Introduction of Other Anti-infective into Peripheral Vein, Percutaneous Approach (ICD-10-PCS; 2023-02-03)
PROC: 5A0935A Assistance with Respiratory Ventilation, Less than 24 Consecutive Hours, High Flow/Velocity Cannula (ICD-10-PCS; 2023-02-04)
PROC: 30233N1 Transfusion of Nonautologous Red Blood Cells into Peripheral Vein, Percutaneous Approach (ICD-10-PCS; principal; 2023-02-05)
DX: A41.9 Sepsis, unspecified organism (principal); I50.23 Acute on chronic systolic (congestive) heart failure; J18.9 Pneumonia, unspecified organism; J96.01 Acute respiratory failure with hypoxia; N17.9 Acute kidney failure, unspecified; E87.1 Hypo-osmolality and hyponatremia; E87.20 Acidosis, unspecified; I13.0 Hypertensive heart and chronic kidney disease with heart failure and stage 1 through stage 4 chronic kidney disease, or unspecified chronic kidney disease; E03.9 Hypothyroidism, unspecified; E78.5 Hyperlipidemia, unspecified; I25.10 Atherosclerotic heart disease of native coronary artery without angina pectoris; E11.22 Type 2 diabetes mellitus with diabetic chronic kidney disease; N18.30 Chronic kidney disease, stage 3 unspecified; N30.90 Cystitis, unspecified without hematuria; E66.01 Morbid (severe) obesity due to excess calories; D63.1 Anemia in chronic kidney disease; E83.51 Hypocalcemia; Z88.0 Allergy status to penicillin; Z88.7 Allergy status to serum and vaccine; Z68.32 Body mass index [BMI] 32.0-32.9, adult; Z88.8 Allergy status to other drugs, medicaments and biological substances; I25.2 Old myocardial infarction; Z90.49 Acquired absence of other specified parts of digestive tract; Z79.84 Long term (current) use of oral hypoglycemic drugs; Z79.82 Long term (current) use of aspirin; Z79.899 Other long term (current) drug therapy
CPT/HCPCS: 36415; 36416; 36430; 71045; 80048; 80053; 82274; 82607; 82728; 83540; 83550; 83605; 83615; 83735; 83880; 84145; 84443; 84484; 85025; 85046; 86850; 86900; 86901; 87077; 87086; 87186; 87449; 87899; 93005; 93798; 97139; J0456; J0696; J1250; J1650; J1815; J1940; J2405; J3490; J7050; P9016; Q5105

== ENCOUNTER 2023-02-25 11:29 | Inpatient (IN) | payer OTHER, MEDICARE ==
[2023-02-25 12:33] LABS: #Basophils 0.1 thou/uL (0.0-0.2); #Eosinphils 0.1 thou/uL (0.0-0.7); #Monocytes 0.4 thou/uL (0.11-0.59); #Neutrophils 5.8 thou/uL (1.40-6.50); %Basophils 0.6 % (0.0-1.0); %Eosinophils 0.7 % (0.0-10.0); %Lymphocytes 23.6 % (21.0-51.0); %Monocytes 4.3 % (0.0-10.0); %Neutrophils 70.2 % (42.0-75.0); Hematocrit 31.2 % (36.0-47.0); Hemoglobin 9.8 g/dL (12.0-16.0); Mean Corpuscular HGB CONC 31.4 g/dL (32.0-36.0); Mean Corpuscular Hemoglobin 27.2 pg (27.0-31.0); Mean Corpuscular Volume 86.7 fl (78.0-98.0); Platelet Count 176 10x3/uL (130-400); RBC Distribution Width 16.4 % (11.5-14.5); White Blood Cell (WBC) Count 8.3 10x3/uL (4.8-10.8)
[2023-02-25 12:56] LABS: ALT (SGPT) 13 U/L (8-55); AST (SGOT) 25 U/L (5-34); Albumin 4.2 g/dL (3.4-4.8); Alkaline Phosphatase 82 U/L (40-110); Anion Gap 18 mmol/L (10-20); BUN (Urea Nitrogen) 44 mg/dL (9.8-20.1); Bilirubin, Total 0.6 mg/dL (0.2-1.2); Calc. Creatinine Clearance 0 mL/min (70-130); Calcium 8.7 mg/dL (7.8-10.44); Carbon Dioxide 23 mmol/L (23-31); Chloride 99 mmol/L (98-107); Estimated GFR 22; Globulin 4.1 g/dL (2.4-3.5); Glucose 121 mg/dL (80-115); Lipase 20 U/L (8-78); Potassium 4.9 mmol/L (3.5-5.1); Protein, Total 8.3 g/dL (5.8-8.1); Sodium 135 mmol/L (136-145)
[2023-02-25 12:59] LABS: Troponin I 0.039 ng/mL (< 0.028)
[2023-02-25] MEDS ORDERED: Aspirin Chewable 81 MG TAB ONE (14:07)
[2023-02-25] MEDS ORDERED: Furosemide 20 MG/2 ML VIAL ONE (14:47)
[2023-02-25] MEDS ORDERED: Gabapentin 400 MG CAP ONE (15:44)
[2023-02-25 16:06] LABS: Troponin I 0.033 ng/mL (< 0.028)
[2023-02-25] MEDS ORDERED: Acetaminophen 325 MG TAB PO PRN (16:08)
[2023-02-25] MEDS ORDERED: Ondansetron ODT 4 MG TAB PO PRN (16:08)
[2023-02-25] MEDS ORDERED: Ondansetron PF 4 MG/2 ML Vial IVP PRN (16:08)
[2023-02-25] MEDS: Carvedilol 3.125 MG TAB PO SCH (18:50)
[2023-02-25 18:54] VITALS: BMI 34.0
[2023-02-25 19:01] LABS: Troponin I 0.031 ng/mL (< 0.028)
[2023-02-25] MEDS: Heparin 5,000 UNITS/ML VIAL SC SCH (20:53)
[2023-02-25] MEDS: Furosemide 40 MG/4 ML VIAL SLOW IVP SCH (20:54)
[2023-02-25] MEDS: Metoclopramide HCl 10 MG/2 ML VIAL IVP SCH (20:54)
[2023-02-25] MEDS: hydrALAZINE 10 MG TAB PO SCH (20:54)
[2023-02-25] MEDS: Isosorbide Dinitrate 5 MG TAB PO SCH (20:55)
[2023-02-25] MEDS: Atorvastatin Calcium 40 MG TAB PO SCH (20:55)
[2023-02-25] MEDS: HYDROcodone/Acetaminophen 5/325 mg Tablet PO PRN (20:55)
[2023-02-26 04:35] LABS: #Basophils 0.1 thou/uL (0.0-0.2); #Eosinphils 0.3 thou/uL (0.0-0.7); #Monocytes 0.4 thou/uL (0.11-0.59); #Neutrophils 3.8 thou/uL (1.40-6.50); %Basophils 0.7 % (0.0-1.0); %Eosinophils 4.4 % (0.0-10.0); %Lymphocytes 32.3 % (21.0-51.0); %Monocytes 6.5 % (0.0-10.0); %Neutrophils 55.8 % (42.0-75.0); Hematocrit 29.5 % (36.0-47.0); Hemoglobin 9.2 g/dL (12.0-16.0); Mean Corpuscular HGB CONC 31.2 g/dL (32.0-36.0); Mean Corpuscular Hemoglobin 27.5 pg (27.0-31.0); Mean Corpuscular Volume 88.1 fl (78.0-98.0); Platelet Count 167 10x3/uL (130-400); RBC Distribution Width 16.6 % (11.5-14.5); Red Blood Cell (RBC) Count 3.35 mill/uL (4.20-5.40); White Blood Cell (WBC) Count 6.8 10x3/uL (4.8-10.8)
[2023-02-26 05:00] LABS: Anion Gap 19 mmol/L (10-20); BUN (Urea Nitrogen) 44 mg/dL (9.8-20.1); Calc. Creatinine Clearance 34 mL/min (70-130); Calcium 8.1 mg/dL (7.8-10.44); Carbon Dioxide 23 mmol/L (23-31); Chloride 101 mmol/L (98-107); Estimated GFR 24; Glucose 105 mg/dL (80-115); Potassium 4.1 mmol/L (3.5-5.1); Sodium 139 mmol/L (136-145)
[2023-02-26] MEDS: Metoclopramide HCl 10 MG/2 ML VIAL IVP SCH ×3 (06:35→21:02)
[2023-02-26] MEDS: Levothyroxine Sodium 125 MCG TAB PO SCH (06:35)
[2023-02-26] MEDS: hydrALAZINE 10 MG TAB PO SCH ×3 (09:17→20:58)
[2023-02-26] MEDS: Aspirin Chewable 81 MG TAB PO SCH (09:17)
[2023-02-26] MEDS: Isosorbide Dinitrate 5 MG TAB PO SCH ×3 (09:18→20:58)
[2023-02-26] MEDS: Cholecalciferol 1,000 UNITS (25 MCG) TAB PO SCH (09:19)
[2023-02-26] MEDS: Ferrous Sulfate 325 MG TAB PO SCH (09:19)
[2023-02-26] MEDS: Carvedilol 3.125 MG TAB PO SCH ×2 (09:19→18:15)
[2023-02-26] MEDS: Famotidine 20 MG TAB PO SCH (09:19)
[2023-02-26] MEDS: Furosemide 40 MG/4 ML VIAL SLOW IVP SCH ×2 (09:19→20:57)
[2023-02-26] MEDS: Heparin 5,000 UNITS/ML VIAL SC SCH ×2 (09:20→20:57)
[2023-02-26] MEDS: HYDROcodone/Acetaminophen 5/325 mg Tablet PO PRN ×2 (11:41→20:58)
[2023-02-26] MEDS ORDERED: Bisacodyl 10 MG SUPP PR SCH (11:45)
[2023-02-26] MEDS: Atorvastatin Calcium 40 MG TAB PO SCH (20:58)
[2023-02-27] MEDS: HYDROcodone/Acetaminophen 5/325 mg Tablet PO PRN (01:56)
[2023-02-27 05:15] LABS: #Eosinphils 0.3 thou/uL (0.0-0.7); #Monocytes 0.4 thou/uL (0.11-0.59); #Neutrophils 3.6 thou/uL (1.40-6.50); %Basophils 0.5 % (0.0-1.0); %Eosinophils 5.2 % (0.0-10.0); %Lymphocytes 26.1 % (21.0-51.0); %Neutrophils 60.7 % (42.0-75.0); Hemoglobin 8.4 g/dL (12.0-16.0); Mean Corpuscular HGB CONC 31.1 g/dL (32.0-36.0); Mean Corpuscular Volume 86.8 fl (78.0-98.0); Platelet Count 146 10x3/uL (130-400); RBC Distribution Width 16.3 % (11.5-14.5); Red Blood Cell (RBC) Count 3.11 mill/uL (4.20-5.40)
[2023-02-27 05:27] LABS: Anion Gap 16 mmol/L (10-20); BUN (Urea Nitrogen) 47 mg/dL (9.8-20.1); Calc. Creatinine Clearance 35 mL/min (70-130); Calcium 7.7 mg/dL (7.8-10.44); Carbon Dioxide 24 mmol/L (23-31); Chloride 101 mmol/L (98-107); Estimated GFR 24; Glucose 172 mg/dL (80-115); Potassium 3.8 mmol/L (3.5-5.1); Sodium 137 mmol/L (136-145)
[2023-02-27] MEDS: Levothyroxine Sodium 125 MCG TAB PO SCH (06:02)
[2023-02-27] MEDS: Metoclopramide HCl 10 MG/2 ML VIAL IVP SCH (06:02)
[2023-02-27] MEDS: Cholecalciferol 1,000 UNITS (25 MCG) TAB PO SCH (10:15)
[2023-02-27] MEDS: Furosemide 40 MG/4 ML VIAL SLOW IVP SCH (10:15)
[2023-02-27] MEDS: Aspirin Chewable 81 MG TAB PO SCH (10:16)
[2023-02-27] MEDS: Carvedilol 3.125 MG TAB PO SCH ×2 (10:16→17:06)
[2023-02-27] MEDS: hydrALAZINE 10 MG TAB PO SCH ×3 (10:16→20:01)
[2023-02-27] MEDS: Isosorbide Dinitrate 5 MG TAB PO SCH ×3 (10:16→20:00)
[2023-02-27] MEDS: Heparin 5,000 UNITS/ML VIAL SC SCH ×2 (10:16→20:01)
[2023-02-27] MEDS: Ferrous Sulfate 325 MG TAB PO SCH (10:16)
[2023-02-27] MEDS: Famotidine 20 MG TAB PO SCH (10:16)
[2023-02-27] MEDS ORDERED: Metoclopramide HCl 10 MG/2 ML VIAL IVP SCH (14:00)
[2023-02-27] MEDS: Gabapentin 300 MG CAP PO SCH (17:06)
[2023-02-27] MEDS: HYDROcodone/Acetaminophen 7.5/325 mg Tablet PO PRN ×2 (19:59→23:44)
[2023-02-27] MEDS: Atorvastatin Calcium 40 MG TAB PO SCH (20:01)
[2023-02-27 23:32] LABS: Bacteria/HPF None Seen HPF (None Seen); Bilirubin Negative (Negative); Blood, Urine Negative (Negative); Clarity Clear (Clear); Glucose, Urine (Dipstick) Normal (Negative); Ketone, Urine Negative (Negative); Leukocyte 25 Leu/uL (Negative); Nitrite Negative (Negative); Protein, Urine (Dipstick) 20 mg/dL (Neg-Trace); RBC/HPF 0-3 HPF (0-3); Squamous Epithelial 0-3 HPF (0-3); Urobilinogen Normal mg/dL (Less than 2); WBC/HPF 0-3 HPF (0-3); pH, Urine 5.5 (5.0-9.0)
[2023-02-28 04:29] LABS: #Eosinphils 0.3 thou/uL (0.0-0.7); #Monocytes 0.4 thou/uL (0.11-0.59); #Neutrophils 3.5 thou/uL (1.40-6.50); %Basophils 0.5 % (0.0-1.0); %Lymphocytes 24.8 % (21.0-51.0); %Monocytes 7.4 % (0.0-10.0); %Neutrophils 61.1 % (42.0-75.0); Hematocrit 26.6 % (36.0-47.0); Hemoglobin 8.2 g/dL (12.0-16.0); Mean Corpuscular HGB CONC 30.8 g/dL (32.0-36.0); Mean Corpuscular Hemoglobin 26.6 pg (27.0-31.0); Mean Corpuscular Volume 86.4 fl (78.0-98.0); Platelet Count 150 10x3/uL (130-400); RBC Distribution Width 16.2 % (11.5-14.5); Red Blood Cell (RBC) Count 3.08 mill/uL (4.20-5.40); White Blood Cell (WBC) Count 5.7 10x3/uL (4.8-10.8)
[2023-02-28 04:57] LABS: Anion Gap 15 mmol/L (10-20); BUN (Urea Nitrogen) 45 mg/dL (9.8-20.1); Calc. Creatinine Clearance 33 mL/min (70-130); Carbon Dioxide 25 mmol/L (23-31); Chloride 99 mmol/L (98-107); Estimated GFR 23; Glucose 160 mg/dL (80-115); Potassium 3.8 mmol/L (3.5-5.1); Sodium 135 mmol/L (136-145)
[2023-02-28] MEDS: Gabapentin 300 MG CAP PO SCH ×2 (06:24→16:11)
[2023-02-28] MEDS: Levothyroxine Sodium 125 MCG TAB PO SCH (06:24)
[2023-02-28 07:46] LABS: Polychromasia SLIGHT = 2-3 cells (100X) (0-2/hpf)
[2023-02-28] MEDS: Aspirin Chewable 81 MG TAB PO SCH (09:13)
[2023-02-28] MEDS: Alogliptin 6.25 MG TAB PO SCH (09:13)
[2023-02-28] MEDS: hydrALAZINE 10 MG TAB PO SCH ×3 (09:14→20:49)
[2023-02-28] MEDS: Heparin 5,000 UNITS/ML VIAL SC SCH ×2 (09:14→20:49)
[2023-02-28] MEDS: Cholecalciferol 1,000 UNITS (25 MCG) TAB PO SCH (09:14)
[2023-02-28] MEDS: Famotidine 20 MG TAB PO SCH (09:14)
[2023-02-28] MEDS: Ferrous Sulfate 325 MG TAB PO SCH (09:14)
[2023-02-28] MEDS: Carvedilol 3.125 MG TAB PO SCH ×2 (09:15→16:02)
[2023-02-28] MEDS: Isosorbide Dinitrate 5 MG TAB PO SCH ×3 (09:27→20:49)
[2023-02-28] MEDS ORDERED: Epoetin (ESRD) 10,000 UNITS/ML VIAL SC SCH (14:00)
[2023-02-28] MEDS ORDERED: Furosemide 20 MG/2 ML VIAL SLOW IVP SCH (15:00)
[2023-02-28] MEDS: HYDROcodone/Acetaminophen 5/325 mg Tablet PO PRN (15:58)
[2023-02-28] MEDS: Atorvastatin Calcium 40 MG TAB PO SCH (20:49)
[2023-02-28] MEDS: HYDROcodone/Acetaminophen 7.5/325 mg Tablet PO PRN (20:52)
[2023-03-01] MEDS: HYDROcodone/Acetaminophen 7.5/325 mg Tablet PO PRN ×2 (04:35→20:16)
[2023-03-01 04:37] LABS: #Eosinphils 0.4 thou/uL (0.0-0.7); #Monocytes 0.5 thou/uL (0.11-0.59); #Neutrophils 3.2 thou/uL (1.40-6.50); %Basophils 0.6 % (0.0-1.0); %Eosinophils 5.7 % (0.0-10.0); %Lymphocytes 35.8 % (21.0-51.0); %Monocytes 7.5 % (0.0-10.0); %Neutrophils 50.1 % (42.0-75.0); Hematocrit 28.5 % (36.0-47.0); Hemoglobin 8.7 g/dL (12.0-16.0); Mean Corpuscular HGB CONC 30.5 g/dL (32.0-36.0); Mean Corpuscular Hemoglobin 27.1 pg (27.0-31.0); Mean Corpuscular Volume 88.8 fl (78.0-98.0); Platelet Count 147 10x3/uL (130-400); RBC Distribution Width 16.4 % (11.5-14.5); Red Blood Cell (RBC) Count 3.21 mill/uL (4.20-5.40); White Blood Cell (WBC) Count 6.4 10x3/uL (4.8-10.8)
[2023-03-01 05:06] LABS: Anion Gap 15 mmol/L (10-20); BUN (Urea Nitrogen) 44 mg/dL (9.8-20.1); Calc. Creatinine Clearance 37 mL/min (70-130); Calcium 8.1 mg/dL (7.8-10.44); Carbon Dioxide 26 mmol/L (23-31); Chloride 99 mmol/L (98-107); Estimated GFR 26; Glucose 121 mg/dL (80-115); Iron 39 ug/dL (50-170); Iron Binding Capacity, Total 241 mcg/dL (265-497); Potassium 4.2 mmol/L (3.5-5.1); Sodium 136 mmol/L (136-145)
[2023-03-01] MEDS: Levothyroxine Sodium 125 MCG TAB PO SCH (06:38)
[2023-03-01] MEDS: Gabapentin 300 MG CAP PO SCH ×2 (06:38→16:59)
[2023-03-01 06:53] LABS: CellaVision Operator ID lab.abc; Hypochromia SLIGHT = 6-15 cells HPF (0-5); Platelet Adequacy Comment Platelets Normal
[2023-03-01] MEDS ORDERED: Ergocalciferol 1.25 MG(50,000 UNITS) CAP PO SCH (09:00)
[2023-03-01] MEDS: Alogliptin 6.25 MG TAB PO SCH (09:25)
[2023-03-01] MEDS: hydrALAZINE 10 MG TAB PO SCH ×3 (09:26→20:16)
[2023-03-01] MEDS: Isosorbide Dinitrate 5 MG TAB PO SCH ×3 (09:26→20:16)
[2023-03-01] MEDS: Ferrous Sulfate 325 MG TAB PO SCH (09:26)
[2023-03-01] MEDS: Aspirin Chewable 81 MG TAB PO SCH (09:26)
[2023-03-01] MEDS: Carvedilol 3.125 MG TAB PO SCH ×2 (09:27→17:00)
[2023-03-01] MEDS: Famotidine 20 MG TAB PO SCH (09:27)
[2023-03-01] MEDS: Heparin 5,000 UNITS/ML VIAL SC SCH ×2 (09:31→20:17)
[2023-03-01] MEDS ORDERED: Furosemide 20 MG/2 ML VIAL SLOW IVP SCH (12:00)
[2023-03-01] MEDS: Atorvastatin Calcium 40 MG TAB PO SCH (20:16)
[2023-03-02] MEDS: HYDROcodone/Acetaminophen 7.5/325 mg Tablet PO PRN (00:46)
[2023-03-02 04:53] LABS: #Eosinphils 0.3 thou/uL (0.0-0.7); #Monocytes 0.4 thou/uL (0.11-0.59); %Basophils 0.5 % (0.0-1.0); %Eosinophils 4.8 % (0.0-10.0); %Lymphocytes 33.5 % (21.0-51.0); %Monocytes 6.8 % (0.0-10.0); Hematocrit 27.9 % (36.0-47.0); Hemoglobin 8.5 g/dL (12.0-16.0); Mean Corpuscular HGB CONC 30.5 g/dL (32.0-36.0); Mean Corpuscular Hemoglobin 27.2 pg (27.0-31.0); Mean Corpuscular Volume 89.1 fl (78.0-98.0); Platelet Count 140 10x3/uL (130-400); RBC Distribution Width 16.6 % (11.5-14.5); Red Blood Cell (RBC) Count 3.13 mill/uL (4.20-5.40); White Blood Cell (WBC) Count 5.6 10x3/uL (4.8-10.8)
[2023-03-02 05:19] LABS: Anion Gap 13 mmol/L (10-20); BUN (Urea Nitrogen) 43 mg/dL (9.8-20.1); Calc. Creatinine Clearance 38 mL/min (70-130); Calcium 8.2 mg/dL (7.8-10.44); Carbon Dioxide 27 mmol/L (23-31); Chloride 97 mmol/L (98-107); Estimated GFR 27; Glucose 146 mg/dL (80-115); Potassium 3.8 mmol/L (3.5-5.1); Sodium 133 mmol/L (136-145)
[2023-03-02] MEDS: Levothyroxine Sodium 125 MCG TAB PO SCH (06:00)
[2023-03-02] MEDS: Gabapentin 300 MG CAP PO SCH ×2 (06:00→19:13)
[2023-03-02] MEDS ORDERED: Furosemide 40 MG TAB PO SCH (08:45)
[2023-03-02] MEDS: Carvedilol 3.125 MG TAB PO SCH ×2 (09:18→16:45)
[2023-03-02] MEDS: hydrALAZINE 10 MG TAB PO SCH ×2 (09:18→16:45)
[2023-03-02] MEDS: Isosorbide Dinitrate 5 MG TAB PO SCH ×2 (09:18→16:44)
[2023-03-02] MEDS: Alogliptin 6.25 MG TAB PO SCH (09:18)
[2023-03-02] MEDS: Ferrous Sulfate 325 MG TAB PO SCH (09:19)
[2023-03-02] MEDS: Heparin 5,000 UNITS/ML VIAL SC SCH (09:19)
[2023-03-02] MEDS: Aspirin Chewable 81 MG TAB PO SCH (09:19)
[2023-03-02 19:45] VITALS: BP 122/76; TEMP 97.6
[2023-03-03] MEDS ORDERED: Furosemide 40 MG TAB PO SCH (07:30)
[2023-03-03] MEDS ORDERED: Famotidine 20 MG TAB PO SCH (09:00)
== END 2023-03-02 20:50 | disposition home or self-care (01) | DRG 291 ==
LOC: ERS 11:29 → 2NO 15:12
PROVIDERS: ADMIT Hospitalist; ATTEND Family Medicine
DX: I13.0 Hypertensive heart and chronic kidney disease with heart failure and stage 1 through stage 4 chronic kidney disease, or unspecified chronic kidney disease (principal); I50.23 Acute on chronic systolic (congestive) heart failure; J96.01 Acute respiratory failure with hypoxia; N17.9 Acute kidney failure, unspecified; E87.1 Hypo-osmolality and hyponatremia; E11.22 Type 2 diabetes mellitus with diabetic chronic kidney disease; E11.40 Type 2 diabetes mellitus with diabetic neuropathy, unspecified; D63.1 Anemia in chronic kidney disease; E03.9 Hypothyroidism, unspecified; K59.00 Constipation, unspecified; R19.00 Intra-abdominal and pelvic swelling, mass and lump, unspecified site; E78.5 Hyperlipidemia, unspecified; N18.30 Chronic kidney disease, stage 3 unspecified; Z88.0 Allergy status to penicillin; Z88.7 Allergy status to serum and vaccine; Z88.8 Allergy status to other drugs, medicaments and biological substances; Z79.82 Long term (current) use of aspirin; Z79.84 Long term (current) use of oral hypoglycemic drugs; Z79.899 Other long term (current) drug therapy; Z90.49 Acquired absence of other specified parts of digestive tract
CPT/HCPCS: 36415; 36416; 71045; 74176; 76770; 80048; 80053; 81001; 82105; 82378; 82728; 83540; 83550; 83690; 83880; 83970; 84484; 85025; 85379; 86301; 86304; 93005; 94760; 96374; 97139; J1644; J1940; J2765